=== PATIENT | female | born 1950 | race Caucasian/White ===

== ENCOUNTER 2020-12-30 18:03 | Emergency (ER) | payer MEDICARE, BC ==
[~2020-12-30] VITALS: Ht 182 cm; Wt 90.0 kg
--- OUTSIDE RECORDS SUMMARY | 2020-12-30 18:09 | XMS REPORT | Encounter Summary ---
Author Author [facility] Organization [facility] Address Unknown Phone Unavailable Care Team Providers Care Bpm Developer Name Role Phone Earl Quintanilla MD Unavailable Epifanio Avelar MD Unavailable Tejas Multani Unavailable Unavailable Epifanio Vazquez MD PCP Encounter Details Care Team Description Date Type Department Matthew Chaney MD [address] [facility] [address] [place] [address] 12/18/2020 Documentation Urology: [facility] [address] [place] [address] Social History Date Tobacco Use Types Packs/Day Years Used Never Smoker Smokeless Tobacco: Never Used Comments Alcohol Use Standard Drinks/Week No 0 (1 standard drink = 0.6 o z pure alcohol) Sex Assigned at Date Recorded Not on file Date Recorded COVID-19 Exposure Response 12/18/2020 12:58 PM CDT In the last month, have you been in contact with No / Unsure someone who was confirmed or suspected to have Coronavirus / COVID-19? documented as of this encounter Miscellaneous Notes * Research - Robert Tesfaye - 12/18/2020 3:01 PM CDT Research Informed Consent Note Study Title: Establishing the Safety and Efficacy of Reloxaliase (Oxalate Decarb oxylase) in Patients with Enteric Hyperoxaluria: A Phase III Randomized, Double- Blind, Placebo-Controlled Study (URIROX-2) [facility] [place] [id number] Consent Version Date: 02/27/2020-02/26/2021 NAME: Emily Spring :1950 AGE: 70 y.o. Clinical research participation and research nature of the trial were discussed with subject during todays visit. The subject was alert and oriented during cons ent discussion. Subject was informed that study is voluntary and she may withdr aw consent at any time for any reason by notifying study team. Study purpose, pr ocedures, tests, samples to be obtained, potential side effects, benefits, fores eeable risks and duration of study were discussed. HIPAA information, compensati on and insurance pre-certification were discussed per consent form. Alternatives to participation were discussed per consent form. Subject verbalized nerissa penn. Subject was provided time to review the consent form and discuss participation i n this study. All questions asked were answered to she satisfaction. Subject v oiced desire to participate in the study. At this time the subject needed to rev iew the income restrictions with the social security admin, and her current insu elda company to check for coverage. The subject DID NOT sign consent at this ti co. She was provided with a copy and we will reach out to her on 12/20/20 to [facility] for updates on the insurance and social security. Subject voiced understandin g and is agreeable to this plan. NO STUDY PROCEDURES TOOK PLACE AT THIS VISIT. A ll study procedures will occur after we receive the ICF. documented in this encounter Plan of Treatment Not on filedocumented as of this encounter Visit Diagnoses Not on filedocumented in this encounter
--- OUTSIDE RECORDS SUMMARY | 2020-12-30 18:09 | XMS REPORT | Encounter Summary ---
Author Author [facility] Organization [facility] Address Unknown Phone Unavailable Care Team Providers Care Slate Splitter Name Role Phone Earl Quintanilla MD Unavailable Epifanio Avelar MD Unavailable Tejas Multani Unavailable Unavailable Epifanio Vazquez MD PCP Reason for Visit * Reason Onset Date Comments Research 12/20/2020 Encounter Details Care Team Description Date Type Department Matthew Chaney MD [address] Orth[facility] [address] [place], [place] [id number] Research 12/20/2020 Telephone Urology: [facility] [address] [place] [address] Social History Date Tobacco Use [...] as of this encounter Miscellaneous Notes * Telephone Encounter - Linda Tesfayean - 12/20/2020 12:58 PM CDT Phone Call Study Title: Establishing the Safety and Efficacy of Reloxaliase (Oxalate Decarb oxylase) in Patients with Enteric Hyperoxaluria: A Phase III Randomized, Double- Blind, Placebo-Controlled Study (URIROX-2) [facility] [place]: [id number] Consent Version Date: 02/27/2020-02/26/2021 NAME: Emily Spring :1950 AGE: 70 y.o. I had the pleasure of speaking to Mrs. Spring on the phone today. Unfortunately, she spent 30 min on hold with medicare and they hung up on her. We will touch Wednesday for any updates on the coverage approval and also work on our end to p recert her for study. No study procedures took place on this call. documented in this encounter Plan of Treatment Not on filedocumented as of this encounter Visit Diagnoses Not on filedocumented in this encounter
--- OUTSIDE RECORDS SUMMARY | 2020-12-30 18:09 | XMS REPORT | Encounter Summary ---
Author Author [facility] Organization [facility] Address Unknown Phone Unavailable Care Team Providers Care [employer] Club Weigher Name Role Phone Earl Quintanilla MD Unavailable Epifanio Avelar MD Unavailable Tejas Multani Unavailable Unavailable Epifanio Vazquez MD PCP Reason for Visit * Reason Comments Kidney Stone Encounter Details Care Team Description Date Type Department Matthew Chaney MD [address] Orth[facility] [address] [place] [address] Nephrolithiasis (Primary Dx) 12/18/2020 Office Visit Urology: [facility] [address] [place] [address] Social History Date Tobacco Use [...] / COVID-19? documented as of this encounter Last Filed Vital Signs Reading Time Taken Comments Vital Sign 156/88 12/18/2020 1:04 PM CDT Blood Pressure 114 12/18/2020 1:04 PM CDT Pulse - - Temperature - - Respiratory Rate - - Oxygen Saturation - - Inhaled Oxygen Concentration 90.7 kg (200 lb) 12/18/2020 1:04 PM CDT Weight 177.8 cm (5' 10") 12/18/2020 1:04 PM CDT Height 28.7 12/18/2020 1:04 PM CDT Body Mass Index documented in this encounter Progress Notes * Mima Segundo, RN - 12/18/2020 1:00 PM CDT Patient seen my research team at today's visit. documented in this encounter Plan of Treatment Not on filedocumented as of this encounter Visit Diagnoses Diagnosis Nephrolithiasis - Primary Calculus of kidney documented in this encounter
--- OUTSIDE RECORDS SUMMARY | 2020-12-30 18:09 | XMS REPORT | Clinical Summary ---
Author Author [facility] Organization [facility] Address Unknown Phone Unavailable Care Team Providers Care Telephone Solicitor Name Role Phone Earl Quintanilla MD Unavailable Epifanio Avelar MD Unavailable Tejas Multani Unavailable Unavailable Epifanio Vazquez MD PCP Source Comments Some departments are not documenting in the electronic medical record. If you d o not see the information that you expected, contact Release of Information in [facility] [employer] Information Management department at [phone] for further assistan ce in locating additional records.[facility] Allergies Comments Active Allergy Reactions Severity Noted Date diarrhea Ampicillin UNKNOWN 10/25/2009 Codeine UNKNOWN 10/25/2009 Medications End Date Status Medication Sig Dispensed Refills Start Date Active amitriptyline (ELAVIL) 50 Take 50 mg by 0 mg tablet mouth At Bedtime Daily. Active MULTIVITAMIN Take 1 tablet 0 POIndications: SVT by mouth (supraventricular daily. tachycardia) (HCC), HTN (hypertension), Hyperlipidemia, CAD (coronary artery disease) Active atorvastatin (LIPITOR) 10 Take 10 mg by 0 mg tablet mouth daily. Active Vitamin A-Vitamin C-Vit Take 1 Cap by 0 E-Min (PRESERVISION mouth. AREDS) cap Active metFORMIN (GLUCOPHAGE) Take 1,000 mg 0 1,000 mg tablet by mouth twice daily with meals. Active VICTOZA 3-VENKATA 0.6 mg/0.1 Take 1.8 3 12/27 /201 mL (18 mg/3 mL) injection Units by 9 pen mouth daily. Active sertraline (ZOLOFT) 50 mg Take 50 mg by 0 tablet mouth daily. Active cholecalciferol (VITAMIN Take 2,000 0 D-3) 50 mcg (2,000 unit) Units by tablet mouth twice daily. Active Biotin 1 mg tab Take 1 tablet 0 by mouth daily. Active BUDESONIDE PO Take 3 0 tablets by mouth every morning. Active nitrofurantoin Take 50 mg by 0 macrocrystaL mouth at (MACRODANTIN) 50 mg bedtime capsule daily. Take with food. Active propylene glycol (SYSTANE Place into 0 BALANCE OP) or around eye(s). Active lisinopriL (ZESTRIL) 10 Take one 90 tablet 3 mg tablet tablet by 0 mouth daily. Active Problems Problem Noted Date Cardiac murmur 02/11/2020 Overview: Formatting of this note might be differ ent from the original. 02/06/2019 - ECHO: No regional wall mo tion abnormalities are seen. Overall LV systolic function appears normal. Th e estimated left ventricular ejection fraction is 60%. There is mil d concentric left ventricular hypertrophy. Right ventricular contrac tility appears normal. Normal chamber dimensions. Mild focal aortic valve sclerosis without stenosis.There is no evidence of signif icant valvular regurgitation or stenosis by doppler exam. No pericardi al effusion is seen. Chest pain 04/03/2015 PVC (premature ventricular contraction) 04/03/2015 Dyspnea 11/27/2009 Overview: Formatting of this note might be differ ent from the original. Marked dyspnea on exertion, PND, orthop malika, etc. 10/09 -- cardiac evaluation included event looping recorder monitoring which has been negative for any significant arrhythmias despite having symptoms; stress echocar diogram with normal resting echocardiogram, normal systolic function; normal diasto lic function; normal PA pressure. Adenosine thallium, which has been completely negative, CBC normal, creatinine 0.7, potassium normal, TSH normal, etc. BNP 11/20/03 normal. CPX testing through casting room helper appar ently negative. Walked on exercise treadmill for 12 min utes. Consideration of high resolution CT at Dr. Vazquez's discretion. Obesity 11/27/2009 Overview: Formatting of this note might be differ ent from the original. A. 2009 s/p gastric bypass surgery. SVT (supraventricular tachycardia) Overview: Formatting of this note might be differ ent from the original. 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 a. Recurrent palpitations although no documented arrhythmias despite multiple attempts at monitoring over the last seven years si nce 2000. Nothing other isolated ectopy. b. Isolated ectopy significantly sympt omatic in [id number]. Sectral initiated and titrated to most tolerable and lowest dose. c. Patient tired to discontinue Sectra l in the past; however, she developed significant recurrent palpitations and therefore remains on S ectral 200 mg daily as of 09/2007. Palpitations HTN (hypertension) Diabetes Hyperlipidemia Overview: Formatting of this note might be differ ent from the original. a. 08/2007 - Blood work through Dr. Erasto chinchilla's office reportedly with LDL below 100 but greater than 70. Patient reluctant to initiate therapy. Statin therapy-Simvastatin. CAD (coronary artery disease) Overview: Formatting of this note might be differ ent from the original. a. 1998 - Abnormal stress imaging perf ormed at outside office. Cardiac cath negative for obstructive disease in 1987 and 1998. b. 10/2003 - Stress echo: Limited imag ing. No clear ischemia but difficult assessment, incomplete. Adenosine thallium obtained: Lateral at tenuation artifact. Otherwise no significant perfusion abnormalities. c. 09/2007 - MPI EF 77%, lateral rever sibility, likely attenuation. d. 04/18/15 - Coronary CTA: No obstruct bell CAD. Mild to moderate calcific plaque in the distal left main but does not lead to significant luminal stenosis. Left and right atrial appendages are free of thrombus. The interatrial septum is intact. EF 71 %. Orthostatic hypotension Overview: Formatting of this note might be differ ent from the original. 07/16/00 - HUTTT (without Isuprel, as i t was unavailable at that time), negative. a. 06/[address] Vazquez's of fice of orthostatic hypotension, medications adjusted. b. Persistent symptoms of palpitations , although no documented arrhythmia, flecainide initiated empiri dinorah. c. Initiation of Sectral 06/06. At one point, patient tried to discontinue Sectral and had marked worsening of symptoms, therefore re-ini tiated with what was felt to be of benefit. d. Lab studies 08/06 unremarkable. e. ELR negative 07/06. f. Zoloft initiated 08/08 and titrated to 100 mg q d. g. Referral to Dr. Sully Rojas reg arding chronic fatigue, etc. 09/07 -- evaluation and multiple lab results pending (03/29/03). h. Marked fatigue -- as above. Also, chance smiley refer to letter 03/29/03 for greater summary of evaluation to date (06/09). Multiple lab tests obt ained including autoimmune tests, fibrinogen, etc. Question of chronic infection. Discusse d case with Dr. Rojas by phone. Also discussed case briefly with Dr. Loco Palmer. Dr. Palmer would be happy to see Ms. Spring. Both Dr. Rojas and Spencer are "out of network". They appar ently is not an infectious disease physician that is in her network in [place] that has done an y significant work with chronic fatigue. i. Marked recurrent orthostatic dizzi ness, clearly orthostatic in nature 11/09 -- Lasix decrease, medications adjusted accordingly. Last Assessment & Plan: Formatting of this note might be differ ent from the original. Ms Spring continues to have orthostatic symptoms, despite stopping the beta ashli therapy. She had what sounded like an orthostati c mediated syncopal event today. In clinic she did meet criteria for ort hostasis, but was not very symptomatic. I am going to check some basic lab work today. I am going to have her load with electr olyte rich fluids a little heavier than usual. I gave her a prescription for midodrine 2.5 mg BID, if her symptoms do not resolve with fluids, I told her to star t taking it. She is going to follow up with Dr Quintanilla in about one month. Neurologic cardiac syncope Overview: Formatting of this note might be differ ent from the original. Symptoms of recurrent lightheadedness a nd near syncope 07/16/00 - HUTTT (without Isuprel, as it was unavailable at that time), negative. 06/[address] Vazquez's office of orthostatic hypotension, medications adjusted. Persistent symptoms of palpitations, al though no documented arrhythmia, flecainide initiated empirically. Initiation of Sectral 06/06. At one poi nt, patient tried to discontinue Sectral and had marked worsening of sym ptoms, therefore re-initiated with what was felt to be of benefit. Lab studies 08/06 unremarkable. ELR neg ative 07/06. Zoloft initiated 08/08 and titrated to 100 mg q d. Referral to Dr. Sully Rojas regardi ng chronic fatigue, etc. 09/07. Marked fatigue -- as above. Also, erick munoz refer to letter 03/29/03 for greater summary of evaluation to date (06/09). Multiple lab tests obt ained including autoimmune tests, fibrinogen, etc. Question of chronic infection. Discusse d case with Dr. Rojas by phone. Also discussed case briefly with Dr. Loco Palmer. Dr. Palmer would be happy to see Ms. Spring. Both Dr. Rojas and Spencer are "out of network". They appar ently is not an infectious disease physician that is in her network in [facility] that has done any significant work with chronic fatigue. Marked recurrent orthostatic dizziness, clearly orthostatic in nature 11/09 -- Lasix decrease, medications adjusted accordingly. JAMARCUS (obstructive sleep apnea) Overview: Formatting of this note might be differ ent from the original. CPAP Fatigue DWYER (dyspnea on exertion) Encounters Care Team Description Date Type Specialty Matthew Chaney MD 12/30/2020 Documentation Urology Matthew Chaney MD Research 12/20/2020 Telephone Urology Matthew Chaney MD Nephrolithiasis (Primary Dx) 12/18/2020 Office Visit Urology Matthew Chaney MD 12/18/2020 Documentation Urology 12/18/2020 Travel from Last 3 Months Surgical History Surgery Date Site/Laterality Comments ABLATION OF DYSRHYTHMIC FOCUS ELECTROCARDIOGRAM DOPPLER ECHOCARDIOGRAPHY CARDIOVASCULAR STRESS TEST MYOCARDIAL PERFUSION IMG STUDY Medical History Medical History Date Comments SVT (supraventricular tachycardia) (HCC) Palpitations HTN (hypertension) Diabetes (HCC) Hyperlipidemia CAD (coronary artery disease) Orthostatic hypotension Neurologic cardiac syncope JAMARCUS (obstructive sleep apnea) Fatigue DWYER (dyspnea on exertion) Adverse drug reaction Obesity Family History Medical History Relation Name Comments Alzheimer's Father Aortic Disease/Dissection Father Diabetes Father Hypertension Father Cancer Mother Coronary Artery Disease Mother Aortic Disease/Dissection Sister Artificial a ortic valve Atrial Fibrillation Sister Diabetes Sister Cancer Sister Breast Cancer Relation Name Status Comments Father Mother Sister Alive Sister Alive Social History Date Tobacco Use Types Packs/Day [...] or suspected to have Coronavirus / COVID-19? Last Filed Vital Signs Reading Time Taken [...] 12/18/2020 1:04 PM CDT Body Mass Index Plan of Treatment Health Maintenance Due Date Last Done Comments MEDICARE ANNUAL WELLNESS 1950 VISIT PNEUMONIA (PPSV23) 1956 VACCINE (1 of 2 - PPSV23) DILATED EYE EXAM 1968 DTAP/TDAP VACCINES (1 - 1968 Tdap) FOOT EXAM 1968 HEPATITIS C SCREENING 1968 PHYSICAL (COMPREHENSIVE) 1968 EXAM BREAST CANCER SCREENING 1990 COLORECTAL CANCER 2000 SCREENING SHINGLES RECOMBINANT 2000 VACCINE (1 of 2) OSTEOPOROSIS 07/19/2015 SCREENING/MONITORING HBA1C 05/06/2020 11/07/2019, 11/19/2017, 07/17/2010 INFLUENZA VACCINE 10/06/2020 Results Not on filefrom Last 3 Months Insurance Type Payer Benefit Subscriber ID Effective Phone Address Plan / Dates Group Medicare MEDICARE MEDICARE [id number] 2006-P PART A AND resent B Medicare [place] [id number] 2006-P SUPPLEMENT resent [id number] [facility] (Home) [place] [id number] 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
[2020-12-30] MEDS ORDERED: KETOROLAC 30 MG/ML VIAL IVP STA (18:26)
[2020-12-30] MEDS ORDERED: NS IV 1000 ML 1,000 ML IV SCH (18:30)
[2020-12-30 18:53] LABS: BASOPHILS % (AUTO) 0 % (0-10); EOSINOPHILS # (AUTO) 0.1 10^3/uL (0.0-0.3); EOSINOPHILS % (AUTO) 2 % (0-10); HEMATOCRIT 36 % (35-52); HEMOGLOBIN 11.6 g/dL (11.5-16.0); LYMPHOCYTES # (AUTO) 1.1 10^3/uL (1.0-4.0); LYMPHOCYTES % (AUTO) 14 % (12-44); MEAN CORPUSCULAR HEMOGLOBIN 28 pg (25-34); MEAN CORPUSCULAR HGB CONC 33 g/dL (32-36); MEAN CORPUSCULAR VOLUME 86 fL (80-99); MEAN PLATELET VOLUME 10.7 fL (9.0-12.2); MONOCYTES # (AUTO) 0.6 10^3/uL (0.0-1.0); MONOCYTES % (AUTO) 8 % (0-12); NEUTROPHILS % (AUTO) 77 % (42-75); PLATELET COUNT 151 10^3/uL (130-400); WHITE BLOOD COUNT 7.9 10^3/uL (4.3-11.0)
[2020-12-30 19:11] LABS: CALCIUM 9.8 MG/DL (8.5-10.1); CREATININE SERUM 0.77 MG/DL (0.60-1.30); POTASSIUM 3.3 MMOL/L (3.6-5.0); TOTAL PROTEIN 7.4 GM/DL (6.4-8.2)
--- NOTE | 2020-12-30 19:16 | ED Back Pain ---
General Chief Complaint: General Problems/Pain Stated Complaint: BACK PAIN Nursing Triage Note: TO ROOM REPORTS THAT SHE JUST MOVED HERE WEDNESDAY FROM . HAS BEEN MOVING AND PULLING ON BOXES. REPORTS ONSET OF [facility]IN [facility] [employer] [employer] ADVISORS ON SIDE AND BACK. HAD KIDNEY STONE IN SEPTEMBER THAT THEY COULD NOT GET WITH LITHOTRIPSY HAS TO USE SOME TYPE OF OTHER PROCEDURE AND WAS TOLD SHE WOULD NEVER HAVE A KIDNEY STONE AGAIN. History of Present Illness Date Seen by Provider: Dec 30, 2020 Time Seen by Provider: 18:10 Initial Comments 70-year-old female presents for left-sided flank pain that is been present for approximately 12 to 24 hours. She recently moved here, from , and first associated the back pain with pushing and pulling on boxes. She has a history of kidney stones that required surgery during the summer 2020. She has not taken any acetaminophen because of a history of cirrhosis and prefers to not take oral NSAIDs because of GI upset. She denies any pain in her low back that radiates into her hips or legs. She doesn't have a refrigerator here and hasn't had insulin since 12/27/20. She denies any nausea or vomiting. Location: Paraspinous Muscles (left) Timing/Duration: 12-24 Hours Severity: Moderate Method of Injury: Unknown Associated Symptoms: denies symptoms; No tingling in legs/feet, No sensory/motor loss; lower back pain (left flank); No loss of bladder control, No loss of bowel control Allergies and Home Medications Allergies Coded Allergies: No Known Drug Allergies (Unverified , 12/30/20) Patient Home Medication List Home Medication List Reviewed: Yes Cephalexin (Cephalexin) 500 Mg Tablet, 500 MG PO QID Prescribed by: LUTHER MICHELLE on 12/30/202026 Tamsulosin HCl (Flomax) 0.4 Mg Cap, 0.4 MG PO DAILY Prescribed by: LUTHER MICHELLE on 12/30/202030 Review of Systems Constitutional: no symptoms reported, see HPI Genitourinary: see HPI; No dysuria, No frequency, No hematuria; other (Left flank pain) All Other Systems Reviewed Negative Unless Noted: Yes Past Vqklgdc-Ttzttj-Hxtasw Hx Patient Social History Tobacco Use?: No Substance use?: No Immunizations Up To Date First/Initial COVID19 Vaccinat: APR Second COVID19 Vaccination Ross: MAY COVID19 Vaccine Orientor: Drivable Family Medical History Reviewed Nursing Family Hx Physical Exam Vital Signs Vital Signs - First Documented 12/30/20 18:10 Temp 36.0 Pulse 102 Resp 18 B/P (MAP) 198/115 (142) Pulse Ox 100 O2 Delivery Room Air Capillary Refill : Less Than 3 Seconds Height, Weight, BMI Height: '" Weight: lbs. oz. kg; 27.00 BMI Method: General Appearance: No Apparent Distress, WD/WN HEENT: PERRL/EOMI, TMs Normal, Normal ENT Inspection, Pharynx Normal Neck: Full Range of Motion, Normal Inspection, Non Tender, Supple Cardiovascular: Regular Rate, Rhythm, No Edema, No Murmur Respiratory: Chest Non Tender, Lungs Clear, Normal Breath Sounds Gastrointestinal: Normal Bowel Sounds, Non Tender, Soft Back: Normal Inspection, CVA Tenderness (L) Extremity: Normal Capillary Refill, Normal Inspection, Normal Range of Motion, No Pedal Edema, Other (Power V/V L4-S1, Neg SLR. ) Neurologic/Psychiatric: Alert, Oriented x3, No Motor/Sensory Deficits, Normal Mood/Affect Progress/Results/Core Measures Results/Orders Lab Results Laboratory Tests Test 12/30/20 18:45 12/30/20 19:25 Range/Units White Blood Count 7.9 4.3-11.0 10^3/uL Red Blood Count 4.16 3.80-5.11 10^6/uL Hemoglobin 11.6 11.5-16.0 g/dL Hematocrit 36 35-52 % Mean Corpuscular Volume 86 80-99 fL Mean Corpuscular Hemoglobin 28 25-34 pg Mean Corpuscular Hemoglobin Concent 33 32-36 g/dL Red Cell Distribution Width 14.1 10.0-14.5 % Platelet Count 151 130-400 10^3/uL Mean Platelet Volume 10.7 9.0-12.2 fL Immature Granulocyte % (Auto) 0 % Neutrophils (%) (Auto) 77 H 42-75 % Lymphocytes (%) (Auto) 14 12-44 % Monocytes (%) (Auto) 8 0-12 % Eosinophils (%) (Auto) 2 0-10 % Basophils (%) (Auto) 0 0-10 % Neutrophils # (Auto) 6.0 1.8-7.8 10^3/uL Lymphocytes # (Auto) 1.1 1.0-4.0 10^3/uL Monocytes # (Auto) 0.6 0.0-1.0 10^3/uL Eosinophils # (Auto) 0.1 0.0-0.3 10^3/uL Basophils # (Auto) 0.0 0.0-0.1 10^3/uL Immature Granulocyte # (Auto) 0.0 0.0-0.1 10^3/uL Sodium Level 140 135-145 MMOL/L Potassium Level 3.3 L 3.6-5.0 MMOL/L Chloride Level 107 98-107 MMOL/L Carbon Dioxide Level 18 L 21-32 MMOL/L Anion Gap 15 H 5-14 MMOL/L Blood Urea Nitrogen 12 7-18 MG/DL Creatinine 0.77 0.60-1.30 MG/DL Estimat Glomerular Filtration Rate 74 BUN/Creatinine Ratio 16 Glucose Level 181 H 70-105 MG/DL Calcium Level 9.8 8.5-10.1 MG/DL Corrected Calcium 9.8 8.5-10.1 MG/DL Total Bilirubin 2.0 H 0.1-1.0 MG/DL Aspartate Amino Transf (AST/SGOT) 36 H 5-34 U/L Alanine Aminotransferase (ALT/SGPT) 25 0-55 U/L Alkaline Phosphatase 103 40-136 U/L Total Protein 7.4 6.4-8.2 GM/DL Albumin 4.0 3.2-4.5 GM/DL Urine Color YELLOW Urine Clarity TURBID Urine pH 6.0 5-9 Urine Specific [place] 1.020 1.016-1.022 Urine Protein 2+ H NEGATIVE Urine Glucose (UA) NEGATIVE NEGATIVE Urine Ketones TRACE H NEGATIVE Urine Nitrite POSITIVE H NEGATIVE Urine Bilirubin NEGATIVE NEGATIVE Urine Urobilinogen 1.0 < = 1.0 MG/DL Urine Leukocyte Esterase 2+ H NEGATIVE Urine RBC (Auto) 2+ H NEGATIVE Urine RBC NONE /HPF Urine WBC 25-50 H /HPF Urine Squamous Epithelial Cells 2-5 /HPF Urine Renal Epithelial Cells NONE /HPF Urine Crystals NONE /LPF Urine Bacteria MODERATE H /HPF Urine Casts NONE /LPF Urine Mucus NEGATIVE /LPF Urine Culture Indicated YES My Orders Orders - LUTHER MICHELLE Ua Culture If Indicated (12/30/20 18:13) Ct Abd/Pelvis Wo(Kidney Stone) (12/30/20 18:26) Ed Iv/Invasive Line Start (12/30/20 18:26) Ns Iv 1000 Ml (Sodium Chloride 0.9%) (12/30/20 18:30) Cbc With Automated Diff (12/30/20 18:26) Comprehensive Metabolic Panel (12/30/20 18:26) Ketorolac Injection (Toradol Injection) (12/30/20 18:26) Urine Culture (12/30/20 19:25) Metformin Tablet (Glucophage Tablet) (12/30/20 20:28) Rx-Cephalexin Capsule (Rx-Keflex Capsule (12/30/20 20:28) Tamsulosin Capsule (Flomax Capsule) (12/30/20 20:28) Vital Signs/I&O 12/30/20 12/30/20 18:10 20:45 Temp 36.0 Pulse 102 102 Resp 18 18 B/P (MAP) 198/115 (142) 160/94 Pulse Ox 100 99 O2 Delivery Room Air Room Air Blood Pressure Mean: 142 Progress Progress Note : Time: 18:10 Progress Note Patient seen and evaluated, will obtain labs, NS 1 L IV, Toradol 30 [address] IV for [address] CT abd/pelvis. 1899 patient has urinated twice, she forgot to use strainer the first time, no stone noted second time. She reports improvement in her pain, from either the Toradol or she has passed a stone. 1999 UA reviewed with her, frequent UTIs and states Keflex works best for her. Will start that with dose tonight and give her Metformin, since she can't find her meds. She would like to follow up with her PCP and Urologist in . Discharge instructions and return precautions reviewed. Diagnostic Imaging Diagonstic Imaging: CT Plain Films/CT/US/NM/MRI: abdomen, pelvis Comments NAME: JAQUI ROBLES [facility] REC#: [id number] PT STATUS: REG ER : 1950 PHYSICIAN: LUTHER MICHELLE ADMIT DATE: 12/30/20/ER Draft Date of Exam:12/30/20 CT ABD/PELVIS WO(KIDNEY STONE) PROCEDURE: CT urinary tract, rule out kidney stone. TECHNIQUE: Multiple contiguous axial images were obtained through the abdomen and pelvis without the use of intravenous contrast. Auto Exposure Controls were utilized during the CT exam to meet ALARA standards for radiation dose reduction. DATE: December 30, 2020. COMPARISON: None. INDICATION: 70-year-old female, flank pain. FINDINGS: There are limitations for evaluation of the abdominal organs, neoplastic processes, abscess, and limited evaluation of the vasculature relating to the lack of intravenous contrast. There are very mild linear opacities in the right middle lobe and lingula consistent with mild atelectasis and/or scarring. The heart is not enlarged. There is no pericardial effusion. The liver is nodular in contour consistent with cirrhosis. The patient is status post cholecystectomy. There is no biliary ductal dilation. The main pancreatic duct is not grossly dilated. Limited noncontrast assessment of the pancreatic parenchyma is unremarkable. The spleen is normal in size. The adrenal glands are unremarkable. There is asymmetric left perinephric stranding. There is a nonobstructing left renal stone on axial image 63 which measures 10 mm in size. There is a stone in the left distal ureter on axial image 97 measuring 4 mm in size. There is moderate left hydronephrosis. There is an additional nonobstructing left renal stone on axial image 58 measuring 2 to 3 mm in size. There is no right hydronephrosis. There is no identified right ureteral stone. The urinary bladder is unremarkable. There is procedural material at the level of the vaginal vault. The uterus is not seen and may be surgically absent. The intestinal tract is not distended. There is no evidence to suggest acute appendicitis. The patient is status post gastric bypass procedure. There is no free intraperitoneal air. There is no drainable fluid collection. There is no sizable volume free pelvic fluid. There are atherosclerotic calcifications. There is no identified abnormally enlarged lymph node in the abdomen or pelvis meeting CT size criteria for adenopathy. There are multilevel degenerative changes of the spine. There is no identified acute bony abnormality. IMPRESSION: CT ABDOMEN AND PELVIS. 1. 4 mm stone in the left distal ureter with moderate left hydronephrosis. 2. Additional nonobstructing left renal stones. 3. Cirrhosis. Dictated on workstation # [id number] Dict: 12/30/201909 Trans: 12/30/201919 [facility] [id number] Interpreted by: CARLITO RODRIGUES MD Electronically signed by: Reviewed: Reviewed by Me Departure Impression Primary Impression: Urolithiasis Qualified Codes: N20.1 - Calculus of ureter Additional Impressions: UTI (urinary tract infection) Qualified Codes: N30.01 - Acute cystitis with hematuria Hyperglycemia Diabetes type 2, controlled Qualified Codes: E11.9 - Type 2 diabetes mellitus without complications Disposition: HOME, SELF-CARE Condition: Improved Departure-Patient Inst. Decision time for Depature: 20:00 Referrals: NO,LOCAL PHYSICIAN (PCP/Family) Primary Care Physician Patient Instructions: Urinary Tract Infection, Adult (DC), Kidney Stones (DC) Add. Discharge Instructions: Increase water intake. Take antibiotics as prescribed. Find your medications and begin your home medications as soon as possible Follow-up with your early childhood special educator as scheduled tomorrow, try to schedule an appointment with urologist for the same time. Return to the emergency department for new, urgent healthcare problems. All discharge instructions reviewed with patient and/or family. Voiced understanding. Scripts Tamsulosin HCl (Flomax) 0.4 Mg Cap 0.4 MG PO DAILY for 14 Days, #14 CAP 0 Refills Prov: LUTHER MICHELLEP 12/30/20 Cephalexin (Cephalexin) 500 Mg Tablet 500 MG PO QID, #28 TAB 0 Refills Prov: LUTHER MICHELLE GUIDE RAIL CLEANER 12/30/20 LTUHER MICHELLE Dec 30, 2020 19:16
--- NOTE | 2020-12-30 19:21 | Diagnostic Imaging Report ---
PROCEDURE: CT urinary tract, rule out kidney stone. TECHNIQUE: Multiple contiguous axial images were obtained through the abdomen and pelvis without the use of intravenous contrast. Auto Exposure Controls were utilized during the CT exam to meet ALARA standards for radiation dose reduction. DATE: December 30, 2020. COMPARISON: None. INDICATION: 70-year-old female, flank pain. FINDINGS: There are limitations for evaluation of the abdominal organs, neoplastic processes, abscess, and limited evaluation of the vasculature relating to the lack of intravenous contrast. There are very mild linear opacities in the right middle lobe and lingula consistent with mild atelectasis and/or scarring. The heart is not enlarged. There is no pericardial effusion. The liver is nodular in contour consistent with cirrhosis. The patient is status post cholecystectomy. There is no biliary ductal dilation. The main pancreatic duct is not grossly dilated. Limited noncontrast assessment of the pancreatic parenchyma is unremarkable. The spleen is normal in size. The adrenal glands are unremarkable. There is asymmetric left perinephric stranding. There is a nonobstructing left renal stone on axial image 63 which measures 10 mm in size. There is a stone in the left distal ureter on axial image 97 measuring 4 mm in size. There is moderate left hydronephrosis. There is an additional nonobstructing left renal stone on axial image 58 measuring 2 to 3 mm in size. There is no right hydronephrosis. There is no identified right ureteral stone. The urinary bladder is unremarkable. There is procedural material at the level of the vaginal vault. The uterus is not seen and may be surgically absent. The intestinal tract is not distended. There is no evidence to suggest acute appendicitis. The patient is status post gastric bypass procedure. There is no free intraperitoneal air. There is no drainable fluid collection. There is no sizable volume free pelvic fluid. There are atherosclerotic calcifications. There is no identified abnormally enlarged lymph node in the abdomen or pelvis meeting CT size criteria for adenopathy. There are multilevel degenerative changes of the spine. There is no identified acute bony abnormality. IMPRESSION: CT ABDOMEN AND PELVIS. 1. 4 mm stone in the left distal ureter with moderate left hydronephrosis. 2. Additional nonobstructing left renal stones. 3. Cirrhosis. Dictated by: Dictated on workstation # [id number]
[2020-12-30 19:58] LABS: BILIRUBIN,URINE NEGATIVE (NEGATIVE); CLARITY,URINE TURBID; COLOR,URINE YELLOW; GLUCOSE, URINE (UA) NEGATIVE (NEGATIVE); KETONES,URINE TRACE (NEGATIVE); LEUKOCYTE ESTERASE ,URINE 2+ (NEGATIVE); NITRITE,URINE POSITIVE (NEGATIVE); PROTEIN,URINE 2+ (NEGATIVE)
[2020-12-30 20:13] LABS: BACTERIA,URINE MODERATE /HPF; WBC,URINE 25-50 /HPF
[2020-12-30] MEDS ORDERED: CEPH500T PO (20:27)
[2020-12-30] MEDS ORDERED: RX-CEPHALEXIN (KEFLEX) 250 MG CAP PPK#4 PO STA (20:28)
[2020-12-30] MEDS ORDERED: TAMSULOSIN 0.4 MG (FLOMAX) CAP PO STA (20:28)
[2020-12-30] MEDS ORDERED: metFORMIN 500 MG (GLUCOPHAGE) TAB PO STA (20:28)
[2020-12-30] MEDS ORDERED: TMSL.4C PO (20:31)
[2020-12-30 20:45] VITALS: BP 160/94
== END 2020-12-30 20:44 | disposition home or self-care (01) ==
LOC: ER 18:06
DX: N13.2 Hydronephrosis with renal and ureteral calculous obstruction (principal); N39.0 Urinary tract infection, site not specified; E11.65 Type 2 diabetes mellitus with hyperglycemia
CPT/HCPCS: 36415; 74176; 80053; 81000; 85025; 87077; 87088; 87186

== ENCOUNTER 2021-02-16 16:44 | Emergency (ER) | payer MEDICARE, BC ==
[~2021-02-16] VITALS: Ht 177.8 cm; Wt 88.5 kg
[~2021-02-16 16:44] MED LIST: CEPH500T PO; TMSL.4C PO
--- OUTSIDE RECORDS SUMMARY | 2021-02-16 16:49 | XMS REPORT | Encounter Summary ---
Author Author [facility] Organization [facility] Address Unknown Phone Unavailable Care Team Providers Care Flight Controls Engineer Name Role Phone Earl Quintanilla MD Unavailable Epifanio Avelar MD Unavailable Tejas Multani Unavailable Unavailable Epifanio Vazquez MD PCP Encounter Details Care Team Description Date Type Department Matthew Chaney MD [address] Orth[facility] [address] [place] [address] 01/02/2021 Documentation Urology: [facility], [facility] [address], [place] [address] Social History Date Tobacco Use [...] Notes * Research - Robert Tesfaye - 01/02/2021 10:31 AM CDT Phone Call Study Title: Establishing the Safety and Efficacy of Reloxaliase (Oxalate Decarb oxylase) in Patients with Enteric Hyperoxaluria: A Phase III Randomized, Double- Blind, Placebo-Controlled Study (URIROX-2) [facility]: [id number] Consent Version Date: 02/27/2020-02/26/2021 Name: Emily Spring : 1950 AGE: 70 y.o. Today I had the please of speaking to Emily Spring on their mobile phone number . Emily called the clinic number on 12/30 and notified us that unfortunately she has an ongoing stone episode w/ a concurrent UTI and possible kidney infection. She was placed on Rocephin and cephalexin for the infections by her PCP. The st one was discovered on a CT scan done at an ER outside of [facility] on 12/30/20. The C T indicated a 4mm stone in her L. Ureter (unknown if proximal or distal). She wa s prescribed Toradol PRN and ondansetron PRN at the ER as well. They have not in dicated that they want to operate on the stone and is under observation at this time. I notified her that we will have to wait till these issues resolve before we can begin the screening process. I also made sure to clarify that she needs t o notify us ARELI if anything changes. She agreed to this plan. I will call her a gain next week to check for the resolution of her symptoms and for any updates. documented in this encounter Plan of Treatment Not on filedocumented as of this encounter Visit Diagnoses Not on filedocumented in this encounter Care Teams Start Date End Date Flight Controls Engineer Relationship Specialty 01/10/13 Epifanio Vazquez MD PCP - General Family [address] [facility] [address] [place] [address] 01/06/10 Earl Quintanilla MD [address] [facility] [id number] [place] [address] 01/06/10 Epifanio Avelar MD [address] [facility] [id number] [place] [address] 01/06/10 Tejas Multani documented as of this encounter
--- OUTSIDE RECORDS SUMMARY | 2021-02-16 16:49 | XMS REPORT | Clinical Summary ---
Author Author [facility] Organization [facility] Address Unknown Phone Unavailable Care Team Providers Care Ict Managers Name Role Phone Earl Quintanilla MD Unavailable Epifanio Avelar MD Unavailable Tejas Multani Unavailable Unavailable Epifanio Vazquez MD PCP Source Comments Some departments are not documenting in the electronic medical record. If you d o not see the information that you expected, contact Release of Information in [facility] [employer] Information Management department at [phone] for further assistan ce in locating additional records.[facility] Allergies Comments Active Allergy Reactions Severity Noted [...] etc. BNP 11/20/03 normal. CPX testing through ophthalmic surgical assistant appar ently negative. Walked on exercise treadmill [...] RFA curing her SVT in 05/2000 at [facility]. a. Recurrent palpitations although no documented arrhythmias despite multiple attempts at monitoring over the last seven years si nce 2000. Nothing other isolated ectopy. b. Isolated ectopy significantly sympt omatic in [id number]. Sectral initiated and titrated to most tolerable [...] physician that is in her network in [place] that has done an y significant work [...] physician that is in her network in [facility] that has done any significant work with chronic fatigue. Marked recurrent orthostatic dizziness, clearly orthostatic in nature 11/09 -- Lasix decrease, medications adjusted accordingly. JAMARCUS (obstructive sleep apnea) Overview: Formatting of this note might be differ ent from the original. CPAP Fatigue DWYER (dyspnea on exertion) Encounters Care Team Description Date Type Specialty Matthew Chaney MD 01/02/2021 Documentation Urology Matthew Chaney MD 12/30/2020 Documentation Urology Matthew [...] Assigned at Date Recorded Not on file Last Filed Vital Signs Reading Time Taken [...] Plan / Dates Group Medicare MEDICARE MEDICARE [id number] 2006-P [phone] [address] [place] [address] Medicare BCBS ROMAN BCBS [id number] 2006-P [phone] [address] [place] [address] [address] [facility] (Home) AMPARO Sánchez [phone] Advance Directives Patient Manager University Explanation Type Date Recorded Advance 01/09/2013 12:09 PM Directive/DPOA Advance Directives 06/15/2011 12:00 AM and Living Will Advance Directives 02/25/2011 12:00 AM and Living Will Advance Directives 08/06/2010 12:00 AM and Living Will Advance Directives 07/31/2010 12:00 AM and Living Will Advance Directives 03/04/2010 12:00 AM and Living Will Care Teams Start Date End Date Ict Managers Relationship Specialty 01/10/13 Epifanio Vazquez MD PCP - General Family [address] [place] [address] [address] [place] [address] 01/06/10 Earl Quintanilla MD [address] [facility] [id number] [place] [address] 01/06/10 Epifanio Avelar MD [address] [facility] [id number] [place] [address] 01/06/10 Tejas Multani
--- OUTSIDE RECORDS SUMMARY | 2021-02-16 16:49 | XMS REPORT | Encounter Summary ---
Author Author [facility] Organization [facility] Address Unknown Phone Unavailable Care Team Providers Care Turkey Pinner Name Role Phone Earl Quintanilla MD Unavailable Epifanio Avelar MD Unavailable Tejas Multani Unavailable Unavailable Epifanio Vazquez MD PCP Encounter Details Care Team Description Date Type Department Matthew Chaney MD [address] Ortho[facility] [address] [place] [address] 12/30/2020 Documentation Urology: [facility], [facility] [address] [place] [address] Social History Date Tobacco Use [...] / COVID-19? documented as of this encounter Progress Notes * Kerry Jimenes LPN - 12/30/2020 2:36 PM CDT Pt calling to let Robert know she passed a stone and had a recent CT in [place] [facility]. I told her I would let Robert know. She agrees with this plan. documented in this encounter Miscellaneous Notes * Research - Robert Tesfaye - 12/30/2020 2:36 PM CDT Phone Call Study Title: Establishing the Safety and Efficacy of Reloxaliase (Oxalate Decarb oxylase) in Patients with Enteric Hyperoxaluria: A Phase III Randomized, Double- Blind, Placebo-Controlled Study (URIROX-2) [facility]: [id number] Consent Version Date: 02/27/2020-02/26/2021 NAME: Emily Spring :1950 AGE: 70 y.o. I had the pleasure of speaking to Mrs. Spring on the phone today. She informed me that she will not have any financial limits to participate because of her social security. The patient did however move to a new home and is out of town for a little while. She will return in a few weeks. At that time she will come in and sign consent to participate on study. After she signs consent we will begin the screening procedures. The patient did not have any questions or concerns regardi ng the study. documented in this encounter Plan of Treatment Not on filedocumented as of this encounter Visit Diagnoses Not on filedocumented in this encounter Care Teams Start Date End Date Turkey Pinner Relationship Specialty 01/10/13 Epifanio Vazquez MD PCP - General Family [address] [facility] [address] [place] [address] 01/06/10 Earl Quintanilla MD [address] [facility] [id number] [place] [address] 01/06/10 Epifanio Avelar MD [address] [facility] [id number] [place] [address] 01/06/10 Tejas Multani documented as of this encounter
--- NOTE | 2021-02-16 16:57 | ED General ---
General Stated Complaint: FEVER/CHILLS Source of Information: Patient Exam Limitations: No Limitations History of Present Illness Date Seen by Provider: Feb 16, 2021 Time Seen by Provider: 16:55 Initial Comments To ER with fever chills up to 102 degrees since 02/14/2021. She has lower abdominal pain urinary frequency and urinary burning. She also has some left flank pain. She was here for a left ureteral stone in December of this year. She believes that she passed the stone but is not sure. No nausea. No cough no shortness of breath. She has had 2 Covid vaccines. Primary care is Dr. Epifanio Vazquez out of [facility]. She just moved to [place] a few months ago. Timing/Duration: 1-2 Days Severity: Moderate Associated Systoms: Fever/Chills Allergies and Home Medications Allergies Coded Allergies: No Known Drug Allergies (Unverified , 12/30/20) Patient Home Medication List Home Medication List Reviewed: Yes Cephalexin (Cephalexin) 500 Mg Tablet, 500 MG PO QID Prescribed by: LUTHER MICHELLE on 12/30/202026 Tamsulosin HCl (Flomax) 0.4 Mg Cap, 0.4 MG PO DAILY Prescribed by: LUTHER MICHELLE on 12/30/202030 Review of Systems Review of Systems Constitutional: see HPI, chills, fever EENTM: see HPI Respiratory: no symptoms reported Cardiovascular: no symptoms reported Genitourinary: see HPI, dysuria Musculoskeletal: no symptoms reported Skin: no symptoms reported Psychiatric/Neurological: No Symptoms Reported Hematologic/Lymphatic: No Symptoms Reported Immunological/Allergic: no symptoms reported Past Mgisldq-Rdohmq-Xcwijj Hx Immunizations Up To Date First/Initial COVID19 Vaccinat: APR Second COVID19 Vaccination Ross: MAY Physical Exam Vital Signs Vital Signs - First Documented 02/16/21 16:50 Temp 36.6 Pulse 113 Resp 22 B/P (MAP) 182/107 (132) Pulse Ox 99 O2 Delivery Room Air Capillary Refill : Height, Weight, BMI Height: '" Weight: lbs. oz. kg; 27.00 BMI Method: General Appearance: No Apparent Distress, WD/WN Eyes: Bilateral Eye Normal Inspection, Bilateral Eye PERRL, Bilateral Eye EOMI Neck: Full Range of Motion, Normal Inspection Respiratory: No Accessory Muscle Use, No Respiratory Distress Cardiovascular: Normal Peripheral Pulses, Tachycardia Gastrointestinal: Normal Bowel Sounds, Non Tender, Soft Extremity: Normal Capillary Refill, Normal Inspection Neurologic/Psychiatric: Alert, Oriented x3 Skin: Normal Color, Warm/Dry Focused Exam Lactate Level 02/16/21 17:15: Lactic Acid Level 1.00 Lactic Acid Level Laboratory Tests Test 02/16/21 17:15 Lactic Acid Level 1.00 MMOL/L (0.50-2.00) Progress/Results/Core Measures Suspected Sepsis SIRS Temperature: Pulse: Respiratory Rate: Laboratory Tests 02/16/21 16:54: White Blood Count 8.7 Blood Pressure / Mean: 02/16/21 17:15: Lactic Acid Level 1.00 Laboratory Tests 02/16/21 16:54: Creatinine 0.73, INR Comment 1.3, Platelet Count 124L, Total Bilirubin 2.7H Results/Orders Lab Results Laboratory Tests Test 02/16/21 16:54 02/16/21 17:15 02/16/21 17:52 Range/Units White Blood Count 8.7 4.3-11.0 10^3/uL Red Blood Count 4.60 3.80-5.11 10^6/uL Hemoglobin 12.8 11.5-16.0 g/dL Hematocrit 39 35-52 % Mean Corpuscular Volume 85 80-99 fL Mean Corpuscular Hemoglobin 28 25-34 pg Mean Corpuscular Hemoglobin Concent 33 32-36 g/dL Red Cell Distribution Width 14.5 10.0-14.5 % Platelet Count 124 L 130-400 10^3/uL Mean Platelet Volume 12.0 9.0-12.2 fL Immature Granulocyte % (Auto) 0 % Neutrophils (%) (Auto) 78 H 42-75 % Lymphocytes (%) (Auto) 11 L 12-44 % Monocytes (%) (Auto) 9 0-12 % Eosinophils (%) (Auto) 1 0-10 % Basophils (%) (Auto) 0 0-10 % Neutrophils # (Auto) 6.7 1.8-7.8 10^3/uL Lymphocytes # (Auto) 1.0 1.0-4.0 10^3/uL Monocytes # (Auto) 0.8 0.0-1.0 10^3/uL Eosinophils # (Auto) 0.1 0.0-0.3 10^3/uL Basophils # (Auto) 0.0 0.0-0.1 10^3/uL Immature Granulocyte # (Auto) 0.0 0.0-0.1 10^3/uL Percent Immature Platelet Fraction 5.2 0.0-7.6 % Prothrombin Time 16.2 H 12.2-14.7 SEC INR Comment 1.3 0.8-1.4 Activated Partial Thromboplast Time 33 24-35 SEC Sodium Level 133 L 135-145 MMOL/L Potassium Level 3.9 3.6-5.0 MMOL/L Chloride Level 101 98-107 MMOL/L Carbon Dioxide Level 20 L 21-32 MMOL/L Anion Gap 12 5-14 MMOL/L Blood Urea Nitrogen 11 7-18 MG/DL Creatinine 0.73 0.60-1.30 MG/DL Estimat Glomerular Filtration Rate 79 BUN/Creatinine Ratio 15 Glucose Level 141 H 70-105 MG/DL Calcium Level 9.6 8.5-10.1 MG/DL Corrected Calcium 9.7 8.5-10.1 MG/DL Total Bilirubin 2.7 H 0.1-1.0 MG/DL Aspartate Amino Transf (AST/SGOT) 31 5-34 U/L Alanine Aminotransferase (ALT/SGPT) 24 0-55 U/L Alkaline Phosphatase 131 40-136 U/L Total Protein 7.6 6.4-8.2 GM/DL Albumin 3.9 3.2-4.5 GM/DL Influenza Type A (RT-PCR) Not Detected Not Detecte Influenza Type B (RT-PCR) Not Detected Not Detecte SARS-CoV-2 RNA (RT-PCR) Not Detected Not Detecte Lactic Acid Level 1.00 0.50-2.00 MMOL/L Urine Color ORANGE Urine Clarity CLEAR Urine pH 6.0 5-9 Urine Specific [place] 1.015 L 1.016-1.022 Urine Protein NEGATIVE NEGATIVE Urine Glucose (UA) NEGATIVE NEGATIVE Urine Ketones 1+ H NEGATIVE Urine Nitrite POSITIVE H NEGATIVE Urine Bilirubin NEGATIVE NEGATIVE Urine Urobilinogen 0.2 < = 1.0 MG/DL Urine Leukocyte Esterase 2+ H NEGATIVE Urine RBC (Auto) 1+ H NEGATIVE Urine RBC 2-5 H /HPF Urine WBC 10-25 H /HPF Urine Squamous Epithelial Cells 2-5 /HPF Urine Crystals NONE /LPF Urine Bacteria MODERATE H /HPF Urine Casts NONE /LPF Urine Mucus NEGATIVE /LPF Urine Culture Indicated CULTURE PENDING My Orders Orders - VANGIE OVERTON APRN Cbc With Automated Diff (02/16/21 16:50) Comprehensive Metabolic Panel (02/16/21 16:50) Blood Culture (02/16/21 16:50) Sputum Culture (02/16/21 16:50) Urinalysis (02/16/21 16:50) Urine Culture (02/16/21 16:50) Protime With Inr (02/16/21 16:50) Partial Thromboplastin Time (02/16/21 16:50) Chest 1 View, Ap/Pa Only (02/16/21 16:50) Ed Iv/Invasive Line Start (02/16/21 16:50) Ed Iv/Invasive Line Start (02/16/21 16:50) Vital Signs Adult Sepsis Patie Q15M (02/16/21 16:50) O2 (02/16/21 16:50) Remove Rings In Anticipation O (02/16/21 16:50) Lactic Acid Analyzer (02/16/21 16:50) Covid 19 Inhouse Test (02/16/21 16:50) Influenza A And B By Pcr (02/16/21 16:50) Lactated Ringers (Lr 1000 Ml Iv Solution (02/16/21 17:00) Ct Abd/Pelvis Wo(Kidney Stone) (02/16/21 16:54) Vital Signs/I&O 02/16/21 16:50 Temp 36.6 Pulse 113 Resp 22 B/P (MAP) 182/107 (132) Pulse Ox 99 O2 Delivery Room Air Capillary Refill : Departure Communication (Admissions) NAME: JAQUI ROBLES [facility] REC#: [id number] PT STATUS: REG ER : 1950 PHYSICIAN: VANGIE OVERTON APRN ADMIT DATE: 02/16/21/ER Draft Date of Exam:02/16/21 CT ABD/PELVIS WO(KIDNEY STONE) CT abd/pelvis w/o (kidney stone). TECHNIQUE: Unenhanced CT imaging of the abdomen and pelvis was performed. 2D reformats were created and submitted for interpretation. Automatic exposure controls were utilized to optimize patient dose. INDICATION: Lower abdominal pain. COMPARISON: 12/30/2020. FINDINGS: Evaluation of the abdominal viscera is mildly limited without contrast. Lower chest: The lung bases are clear. No pericardial or pleural effusion. Peritoneum: No free intraperitoneal air or fluid. Liver and biliary system: Nodular liver is indicative of cirrhosis. No focal hepatic lesion is appreciated by noncontrast CT. Cholecystectomy. No biliary duct dilatation. Spleen and pancreas: Stable splenomegaly with the spleen measuring 15 cm. Unenhanced pancreas is grossly normal. Adrenals: Normal. tract: Mild left hydronephrosis is present with perinephric stranding. There is no stone present within the left ureter. There are adjacent nonobstructing stones in the lower pole of the left kidney measuring up to 4 mm. No right-sided renal or ureteral stones. Urinary bladder is normally filled without wall thickening. A pessary device is in place. GI tract: Status post Dariel-en-Y gastric bypass. Included stomach is decompressed. No bowel obstruction. No pericolonic inflammatory changes. Normal appendix. Vasculature and Lymph nodes: Normal caliber aorta. No abdominal or pelvic lymphadenopathy. Musculoskeletal: No concerning osseous lesion. IMPRESSION: 1. Mild left hydronephrosis with perinephric stranding has diminished since 12/30/2020 examination. The appearance may be due to sequelae of prior obstruction or recently passed stone, as there is no stone in the left ureter at this time. 2. Cirrhosis with splenomegaly. 3. No ascites. Dictated on workstation # [id number] Dict: 02/16/21 1745 Trans: 02/16/21 1757 [facility] [id number] Interpreted by: ROHAN NOEL MD Electronically signed by: Impression Primary Impression: UTI (urinary tract infection) Disposition: 01 HOME, SELF-CARE Condition: Stable Departure-Patient Inst. Decision time for Depature: 18:10 Referrals: NO,LOCAL PHYSICIAN (PCP/Family) Primary Care Physician Patient Instructions: Urinary Tract Infection, Adult (DC) Scripts Cefuroxime Axetil (Cefuroxime) 500 Mg Tablet 500 MG PO BID, #10 TAB Prov: VANGIE OVERTON APRN 02/16/21 VANGIE OVERTON APRN Feb 16, 2021 16:56
[2021-02-16] MEDS ORDERED: LACTATED RINGERS 1,000 ML IV SCH (17:00)
[2021-02-16 17:09] LABS: BASOPHILS % (AUTO) 0 % (0-10); HEMOGLOBIN 12.8 g/dL (11.5-16.0); MEAN CORPUSCULAR HEMOGLOBIN 28 pg (25-34)
[2021-02-16 17:11] LABS: EOSINOPHILS # (AUTO) 0.1 10^3/uL (0.0-0.3); EOSINOPHILS % (AUTO) 1 % (0-10); HEMATOCRIT 39 % (35-52); LYMPHOCYTES % (AUTO) 11 % (12-44); MEAN CORPUSCULAR HGB CONC 33 g/dL (32-36); MEAN CORPUSCULAR VOLUME 85 fL (80-99); MONOCYTES # (AUTO) 0.8 10^3/uL (0.0-1.0); MONOCYTES % (AUTO) 9 % (0-12); NEUTROPHILS # (AUTO) 6.7 10^3/uL (1.8-7.8); NEUTROPHILS % (AUTO) 78 % (42-75); PLATELET COUNT 124 10^3/uL (130-400); WHITE BLOOD COUNT 8.7 10^3/uL (4.3-11.0)
[2021-02-16 17:18] LABS: ALBUMIN 3.9 GM/DL (3.2-4.5); POTASSIUM 3.9 MMOL/L (3.6-5.0)
[2021-02-16 17:19] LABS: CALCIUM 9.6 MG/DL (8.5-10.1)
[2021-02-16 17:20] LABS: TOTAL PROTEIN 7.6 GM/DL (6.4-8.2)
[2021-02-16 17:22] LABS: BILIRUBIN,TOTAL 2.7 MG/DL (0.1-1.0)
[2021-02-16 17:24] LABS: CREATININE SERUM 0.73 MG/DL (0.60-1.30)
[2021-02-16 17:49] LABS: INR 1.3 (0.8-1.4); PROTHROMBIN TIME PATIENT 16.2 SEC (12.2-14.7)
--- NOTE | 2021-02-16 17:53 | Diagnostic Imaging Report ---
CHEST 1 VIEW, AP/PA ONLY Indication: Fever Comparison: None available. Findings: No focal airspace disease in the visualized lungs. Please note that the posterior lower lobes are poorly evaluated by portable radiography. No pleural effusion or pneumothorax. Normal cardiomediastinal silhouette. Impression: 1. No acute cardiopulmonary process by portable radiography. Dictated by: Dictated on workstation # [id number]
[2021-02-16 17:59] LABS: BILIRUBIN,URINE NEGATIVE (NEGATIVE); CLARITY,URINE CLEAR; COLOR,URINE ORANGE; GLUCOSE, URINE (UA) NEGATIVE (NEGATIVE); KETONES,URINE 1+ (NEGATIVE); LEUKOCYTE ESTERASE ,URINE 2+ (NEGATIVE); NITRITE,URINE POSITIVE (NEGATIVE); PROTEIN,URINE NEGATIVE (NEGATIVE)
--- NOTE | 2021-02-16 17:59 | Diagnostic Imaging Report ---
CT abd/pelvis w/o (kidney stone). TECHNIQUE: Unenhanced CT imaging of the abdomen and pelvis was performed. 2D reformats were created and submitted for interpretation. Automatic exposure controls were utilized to optimize patient dose. INDICATION: Lower abdominal pain. COMPARISON: 12/30/2020. FINDINGS: Evaluation of the abdominal viscera is mildly limited without contrast. Lower chest: The lung bases are clear. No pericardial or pleural effusion. Peritoneum: No free intraperitoneal air or fluid. Liver and biliary system: Nodular liver is indicative of cirrhosis. No focal hepatic lesion is appreciated by noncontrast CT. Cholecystectomy. No biliary duct dilatation. Spleen and pancreas: Stable splenomegaly with the spleen measuring 15 cm. Unenhanced pancreas is grossly normal. Adrenals: Normal. tract: Mild left hydronephrosis is present with perinephric stranding. There is no stone present within the left ureter. There are adjacent nonobstructing stones in the lower pole of the left kidney measuring up to 4 mm. No right-sided renal or ureteral stones. Urinary bladder is normally filled without wall thickening. A pessary device is in place. GI tract: Status post Dariel-en-Y gastric bypass. Included stomach is decompressed. No bowel obstruction. No pericolonic inflammatory changes. Normal appendix. Vasculature and Lymph nodes: Normal caliber aorta. No abdominal or pelvic lymphadenopathy. Musculoskeletal: No concerning osseous lesion. IMPRESSION: 1. Mild left hydronephrosis with perinephric stranding has diminished since 12/30/2020 examination. The appearance may be due to sequelae of prior obstruction or recently passed stone, as there is no stone in the left ureter at this time. 2. Cirrhosis with splenomegaly. 3. No ascites. Dictated by: Dictated on workstation # [id number]
[2021-02-16 18:05] LABS: BACTERIA,URINE MODERATE /HPF
[2021-02-16] MEDS ORDERED: CEFU500T63 PO (18:11)
[2021-02-16] MEDS ORDERED: cefTRIAXone 1 GM PRE-MIX 50 ML IV ONE (18:15)
[2021-02-16 18:44] VITALS: BP 140/89
== END 2021-02-16 18:43 | disposition home or self-care (01) ==
LOC: EDUNIT# 16:44 → ER 16:46
DX: N39.0 Urinary tract infection, site not specified (principal); R00.0 Tachycardia, unspecified; Z20.822 Contact with and (suspected) exposure to COVID-19
CPT/HCPCS: 36415; 71045; 74176; 80053; 81000; 83605; 85025; 85610; 85730; 87040; 87077; 87088; 87186; 87636; 96361; 96374

== ENCOUNTER → 2021-02-22 | Outpatient (CLI) | payer MEDICARE, BC ==
[~2021-02-22] MED LIST changes: +CEFU500T63 PO
--- NOTE | 2021-02-22 17:26 | Diagnostic Imaging Report ---
EXAM: US VENOUS UPPER EXT LT INDICATION: Pain and bruising in left upper extremity. COMPARISON: None. TECHNIQUE: Duplex, conklin-scale and color-flow imaging of the left upper extremity venous system was performed. FINDINGS: The left jugular, subclavian, axillary and brachial veins show no evidence of intraluminal thrombosis. The basilic and cephalic veins are patent. These vessels show normal compressibility, color flow and Doppler augmentation. IMPRESSION: No evidence of deep venous thrombosis in the left upper extremity. Dictated by: Dictated on workstation # [id number]
== END ==
LOC: RAD 16:33
PROVIDERS: ATTEND Nurse Practitioner Family
DX: S40.022A Contusion of left upper arm, initial encounter (principal); X58.XXXA Exposure to other specified factors, initial encounter

== ENCOUNTER 2021-07-30 16:08 | Outpatient (CLI) | payer MEDICARE, BC ==
[~2021-07-30] VITALS: Ht 177.8 cm; Wt 88.0 kg
[2021-07-30] MEDS ORDERED: NORT50CA PO (16:49)
[2021-07-30] MEDS ORDERED: ATOR10TA66 PO (16:49)
[2021-07-30] MEDS ORDERED: AMOX125S47 PO (16:49)
[2021-07-30] MEDS ORDERED: SERT-413 PO (16:49)
[2021-07-30] MEDS ORDERED: METF-399 PO (16:49)
== END 2021-07-30 17:04 | disposition home or self-care (01) ==
LOC: PREOP 16:08
PROVIDERS: ATTEND Internal Medicine
DX: Z01.818 Encounter for other preprocedural examination (principal)

== ENCOUNTER 2021-08-01 10:40 | Day surgery (SDC) | payer BC, MEDICARE ==
--- NOTE | 2021-07-31 08:17 | HISTORY AND PHYSICAL ---
DATE OF SERVICE: PANENDOSCOPY HISTORY AND PHYSICAL HISTORY OF PRESENT ILLNESS: The patient is a 71-year-old white female referred by Dr. Epifanio Vazquez of [place], [place] for consideration for panendoscopy. She reports 6 to 8 loose stools per day for the past 3 to 4 months with a 10 to 20-pound weight loss. With this, she has had intermittent epigastric discomfort. PAST MEDICAL HISTORY: Pertinent for diagnosis of lymphocytic colitis after colonoscopy for diarrhea 3 years ago. She was given budesonide at that time with resolution of symptoms, which are similar today's symptoms. She has a past history of Dariel-en-Y gastric bypass for weight loss in 2009 and reports occult positive blood in the stool. She is not sure as to whether or not it is associated with anemia. She did not think so. She denies dysphagia. Has noted no melena or bright red blood per rectum. PAST MEDICAL HISTORY: Significant for cholecystectomy in 2006. She reports that she had no issues with diarrhea following a cholecystectomy in fact previously attended more towards constipation. She does report multiple colonoscopies in the past and for the last one, she has usually had several precancerous polyps removed with no known history of colon cancer. Last colonoscopy was 3 years ago. SOCIAL HISTORY: She is retired. Reports no past smoking or drinking history. PAST MEDICAL HISTORY: Other than above is noted for depression, type 2 diabetes and hyperlipidemia. She has no known history of coronary artery disease. MEDICATIONS ON ADMISSION: Metformin 1000 mg b.i.d., sertraline 50 mg at bedtime, nortriptyline 50 mg at bedtime, atorvastatin 10 mg daily, B12 injections monthly. 2000 units of vitamin D daily and biotin 1000 units at bedtime. REVIEW OF SYSTEMS: CONSTITUTIONAL: Reports 10-20 pound weight loss. Denies night sweats, chills or fever. PULMONARY: Denies cough, wheezing or shortness of breath. GASTROINTESTINAL: As noted in the HPI. CARDIOVASCULAR: Denies orthopnea or PND. Does report some pedal edema by the end of the day. PHYSICAL EXAMINATION: GENERAL: Reveals a white female, a little anxious, but not in acute distress. VITAL SIGNS: Weight 194 pounds, blood pressure 144/84. HEENT: Unremarkable. Sclerae nonicteric. CHEST: Clear to auscultation. CARDIOVASCULAR: Reveals a regular rate and rhythm with a 2/6 systolic ejection murmur heard best at left lower sternal border and second right intercostal space without evidence of Pulsus parvus et tardus. No S3 or S4 noted. ABDOMEN: Soft, supple. Epigastric pain to palpation is noted. No mass or organomegaly is noted. Bowel sounds are positive. No bruits are appreciated. EXTREMITIES: Reveal no cyanosis, clubbing or edema on the morning appointment. The patient's electronic medical record was reviewed. She did have an emergency room visit from 12/26 for right obstructing nephrolithiasis complicated by urinary tract infection. CT also revealed a nodular liver suggesting cirrhosis. She ultimately passed the stone. For evaluation of epigastric pain, occult positive blood in the stool and diarrhea with a past history of lymphocytic colitis, the patient will be undergoing panendoscopy this Wednesday. Prep instructions were given. We will be planning on performing biopsies. CT scan findings in 01/2021, suggesting cirrhosis. The patient denies alcohol use, suspect nonalcoholic fatty liver disease, but the patient is not aware whether or not she has been tested for hepatitis C, we will do so. We will also be making sure there is no evidence for esophageal or gastric varices, likely obtain a baseline AFP level and again hepatitis B and C serology if this has not been done in the past. I thank you for the referral of this pleasant lady. Job ID: [id number] DocumentID: [id number] Dictated Date: 07/29/2021 11:14:10 Lay Brother Date: 07/29/2021 11:31:28 Dictated By: OMKAR DUBOSE MD
[~2021-08-01] VITALS: Ht 177.8 cm; Wt 88.0 kg
[~2021-08-01 10:40] MED LIST changes: +AMOX125S47 PO; +ATOR10TA66 PO; +METF-399 PO; +NORT50CA PO; +SERT-413 PO
[2021-08-01] MEDS ORDERED: LACTATED RINGERS 1,000 ML IV STA (10:57)
[2021-08-01 11:00] VITALS: BP 181/104
--- NOTE | 2021-08-01 11:41 | Pre-Op Note & Conscious Sedat ---
Pre-Operative Progress Note H&P Reviewed The H&P was reviewed, patient examined and no changes noted. Date H&P Reviewed: August 01, 2021 Time H&P Reviewed: 11:41 Conscious Sedation Pre-Proced ASA Score 3 For ASA 3 and 4: Consider anesthesia and medical clearance. Also, for patients with a history of failed moderate sedation consider anesthesia. Airway Lungs Heart ASA score ASA 1: a normal healthy patient ASA 2: a patient with a mild systemic disease (mid diabetes, controlled hypertension, obesity ASA 3: a patient with a severe systemic disease that limits activity (angina, COPD, prior Myocardial infarction) ASA 4: a patient with an incapacitating disease that is a constant threat to life (CHF, renal failure) ASA 5: a moribund patient not expected to survive 24 hrs. (ruptured aneurysm) ASA 6: a declared brain- patient whose organs are being harvested. For emergent operations, add the letter E after the classification Mallampati Classification Grade 2 Sedation Plan Analgesia, Amnesia, Plan communicated to team members, Discussed options with patient/fam, Discussed risks with patient/fam The patient is an appropriate candidate to undergo the planned procedure, sedation, and anesthesia. The patient immediately re-assessed prior to indication. OMKAR DUBOSE MD August 01, 2021 11:41
[2021-08-01] MEDS ORDERED: PROPOFOL INJECTION 50 ML IV ONE (12:06)
[2021-08-01] MEDS ORDERED: proPOfol 200 MG/20 ML (DIPRIVAN) VIAL IV ONE (12:39)
[2021-08-01 13:03] VITALS: BP 151/76
[2021-08-01 13:06] VITALS: BP 150/75
[2021-08-01 13:10] VITALS: BP 164/84
--- NOTE | 2021-08-01 13:11 | Anesthesia-General Post-Op ---
MAC Patient Condition Mental Status/LOC: Same as Preop Cardiovascular: Satisfactory Nausea/Vomiting: Absent Respiratory: Satisfactory Pain: Controlled Complications: Absent Post Op Complications Complications None Follow Up Care/Instructions Patient Instructions None needed. Anesthesiology Discharge Order Discharge Order Patient is doing well, no complaints, stable vital signs, no apparent adverse anesthesia problems. No complications reported per nursing. GRANT BELTRAN CRNA August 01, 2021 13:11
[2021-08-01 13:23] VITALS: BP 164/84
--- NOTE | 2021-08-01 22:27 | OPERATIVE REPORT ---
DATE OF SERVICE: PANENDOSCOPY SUMMARY Panendoscopy was performed for the evaluation of diarrhea, past history of lymphocytic colitis with anemia and occult positive blood in the stool with history of reportedly Dariel-en-Y gastric bypass. The patient was placed in the left lateral decubitus position. The endoscope was inserted in the oral cavity and under direct visualization, the esophagus was intubated. The endoscope was passed down the esophagus through stomach into the duodenum. Afferent and efferent limbs were inspected. Assessment: Proximal, mid and distal esophagus were unremarkable. The Z line was distinct without evidence for erosive esophagitis, erythema or Lovett's change. Findings compatible with Dariel-en-Y gastric bypass are noted. No evidence for ulceration, erythema or potential bleeding sites were identified. Normal villous appearing architecture was visualized on gross inspection of the efferent and afferent limbs. Assessment: Unremarkable EGD, save for expected postoperative findings of a Dariel-en-Y gastric bypass. No potential bleeding sites identified. We then proceeded with colonoscopy. The colonoscope was inserted in the rectum and under direct visualization advanced to the mid ascending colon. The cecum was not visualized secondary to technical difficulty. Quality of the prep was good. FINDINGS: The rectum was unremarkable to visual inspection. Biopsy for microscopic colitis was obtained considering her history. There were some punctate areas of erythema noted in the sigmoid colon without evidence for diverticular disease, ulceration or other abnormality. Biopsy was obtained from the sigmoid colon. The descending colon, splenic flexure, transverse colon, hepatic flexure and distal ascending colon were unremarkable. The proximal ascending and cecum were not visualized secondary to technical difficulty. Assessment: There were a few punctate areas of erythema noted in the sigmoid colon without evidence for diverticular disease with an otherwise normal colonoscopy of the proximal ascending colon. Biopsies are pending. If microscopic colitis is present, we will initiate treatment recommendations. Unfortunately, the patient reports that she is unable to afford Entocort. We will discuss more affordable options with expectations pending biopsy results. Job ID: [id number] DocumentID: [id number] Dictated Date: 08/01/2021 13:18:33 Senior Architect Date: 08/01/2021 22:26:12 Dictated By: OMKAR DUBOSE MD
== END 2021-08-01 13:36 | disposition home or self-care (01) ==
LOC: ENDO 10:40
PROVIDERS: ATTEND Internal Medicine
DX: K63.89 Other specified diseases of intestine (principal); R19.7 Diarrhea, unspecified; D64.9 Anemia, unspecified; R19.5 Other fecal abnormalities; E11.9 Type 2 diabetes mellitus without complications; J45.909 Unspecified asthma, uncomplicated; Z98.84 Bariatric surgery status; Z79.84 Long term (current) use of oral hypoglycemic drugs

== ENCOUNTER 2021-09-12 10:02 | Inpatient (IN) | payer MEDICARE ==
[~2021-09-12] VITALS: Ht 177.8 cm; Wt 90.9 kg
[2021-09-12 10:53] LABS: BASOPHILS # (AUTO) 0.1 10^3/uL (0.0-0.1); BASOPHILS % (AUTO) 0 % (0-10); EOSINOPHILS # (AUTO) 0.1 10^3/uL (0.0-0.3); EOSINOPHILS % (AUTO) 0 % (0-10); HEMATOCRIT 42 % (35-52); HEMOGLOBIN 13.6 g/dL (11.5-16.0); LYMPHOCYTES % (AUTO) 5 % (12-44); MEAN CORPUSCULAR HEMOGLOBIN 27 pg (25-34); MEAN CORPUSCULAR HGB CONC 33 g/dL (32-36); MEAN CORPUSCULAR VOLUME 84 fL (80-99); MEAN PLATELET VOLUME 11.4 fL (9.0-12.2); MONOCYTES # (AUTO) 0.9 10^3/uL (0.0-1.0); MONOCYTES % (AUTO) 5 % (0-12); NEUTROPHILS # (AUTO) 17.3 10^3/uL (1.8-7.8); NEUTROPHILS % (AUTO) 89 % (42-75); PLATELET COUNT 184 10^3/uL (130-400); WHITE BLOOD COUNT 19.5 10^3/uL (4.3-11.0)
[2021-09-12 10:57] LABS: ALBUMIN 3.7 GM/DL (3.2-4.5); POTASSIUM 3.1 MMOL/L (3.6-5.0)
[2021-09-12 10:58] LABS: CALCIUM 8.7 MG/DL (8.5-10.1)
[2021-09-12 10:59] LABS: TOTAL PROTEIN 7.1 GM/DL (6.4-8.2)
[2021-09-12] MEDS ORDERED: fentaNYL INJ 100 MCG/2 ML AMP IVP ONE (11:00)
[2021-09-12] MEDS ORDERED: ONDANSETRON 4 MG/2 ML (SDV) Z0FRAN IVP ONE (11:00)
[2021-09-12] MEDS ORDERED: HYOSCYAMINE 0.125 MG (LEVSIN) TAB SL ONE (11:00)
[2021-09-12 11:01] LABS: BILIRUBIN,TOTAL 2.3 MG/DL (0.1-1.0); INR 1.5 (0.8-1.4); PROTHROMBIN TIME PATIENT 18.5 SEC (12.2-14.7)
[2021-09-12 11:03] LABS: CREATININE SERUM 1.33 MG/DL (0.60-1.30)
[2021-09-12 11:10] LABS: BAND NEUTROPHILS 18 %; LYMPHOCYTES % (MANUAL) 3 %; MONOCYTES % (MANUAL) 3 %; NEUTROPHILS % (MANUAL) 76 %
[2021-09-12 11:12] LABS: ERYTHROCYTE SEDIMENTATION RATE 18 MM/HR (0-30); RBC MORPH NORMAL
[2021-09-12] MEDS ORDERED: POTASSIUM CL 10MEQ/50ML IVPB 50 ML IV ONE (11:30)
[2021-09-12] MEDS ORDERED: NS IV 1000 ML 1,000 ML IV SCH ×2 (11:30→12:45)
[2021-09-12] MEDS ORDERED: PIPERACILLIN SODIUM/TAZOBACTAM 4.5 GM in NS (IVPB) 100 ML IV ONE (11:45)
--- NOTE | 2021-09-12 13:33 | Diagnostic Imaging Report ---
Indication: Diarrhea. Time of Exam: 1:17 PM Correlation is made with prior chest from 02/16/2021. Findings: The heart size is normal. The pulmonary vascularity is unremarkable. The lungs are clear. No infiltrate, effusion or pneumothorax is detected. Impression: No acute cardiopulmonary process is detected. Dictated by: Dictated on workstation # [id number]
--- NOTE | 2021-09-12 13:43 | Diagnostic Imaging Report ---
EXAMINATION: CT abdomen and pelvis without contrast. TECHNIQUE: Multiple contiguous axial images were obtained through the abdomen and pelvis without the use of intravenous contrast. All CT scans use one or more of the following dose optimizing techniques: automated exposure control, MA and/or KvP adjustment based on patient size and exam type or iterative reconstruction. HISTORY: Abd pain, sepsis COMPARISON: 02/16/2021 FINDINGS: Lung bases: The lung bases are clear. Solid organs: Diffuse hypoattenuation and nodular contour of the liver. The gallbladder is surgically absent. There is no biliary ductal dilation. Pancreas is normal. Spleen is normal. Adrenal glands are normal. There is a nonobstructing left renal calculi measuring up to 0.2 cm. No hydronephrosis. Bowel: Surgical changes from gastric bypass. No bowel obstruction. There is diffuse wall thickening of the colon with associated inflammatory stranding. Peritoneum: There is trace ascites along the liver. No loculated fluid collection or free air. No suspicious lymphadenopathy. Vasculature: Normal without aneurysm. Musculoskeletal: No suspicious osseous lesion or compression fracture. Pelvis: The uterus is surgically absent. No adnexal mass. The urinary bladder is normal. IMPRESSION: 1. Diffuse wall thickening and inflammatory stranding of the colon which is concerning for an infectious or inflammatory colitis. Less likely differential consideration could include portal colopathy given the cirrhotic morphology of the liver. 2. Morphologic changes of cirrhosis with trace ascites and underlying hepatic steatosis. Dictated by: Dictated on workstation # [id number]
--- NOTE | 2021-09-12 14:24 | ED General ---
General Chief Complaint: Abdominal/GI Problems Stated Complaint: DIARRHEA,WEAKNESS Nursing Triage Note: PT TO ROOM 06 WITH C/O DIARRHEA FOR "SEVERAL MONTHS". PT REPORTS BEING SEEN BY DR BARNETT YESTERDAY AND GIVEN IV FLUIDS AND MEDS. PT STATES SHE WAS GIVEN PRESCRIPTIONS AND WAS UNABLE TO TAKE THEM BECAUSE SHE WAS "NOT ABLE TO GET OFF THE COUCH". PT REPORTS LEFT SIDE ABD PAIN AND LEFT FLANK PAIN. Source of Information: Patient Exam Limitations: No Limitations History of Present Illness Date Seen by Provider: Sep 12, 2021 Time Seen by Provider: 10:15 Initial Comments Emily Robles is a 71-year-old woman who presents to the emergency room with complaints of large volume of liquidy diarrhea that is chronic but worse over the past month. She also reports fever yesterday up to 103 F. Her chronic abdominal pain is worse than usual. She is notably tachycardic on presentation. Mentation seems sluggish which she acknowledges. Although she has had significant symptoms for a month, she reports her decision to come to the emergency room this morning was because of inability to get up. She has a history of lymphocytic colitis. This was confirmed by colonoscopy with biopsies performed by Dr. Barnett in July. Patient also has history of diabetes and cirrhosis. Cirrhosis is believed to be caused by fatty liver disease. Patient reports she has been on prednisone 15 mg daily for treatment of her colitis and cholestyramine for treatment of the chronic diarrhea. She is not febrile at this time but her heart rate is in the 1 30-1 40 range. Allergies and Home Medications Allergies Coded Allergies: codeine (Unverified Allergy, Unknown, RASH, 07/30/21) Patient Home Medication List Home Medication List Reviewed: Yes Amoxicillin/Potassium Clav (Augmentin 125-31.25 mg/5 ml) 125 Mg-31.25 Mg/5 Ml Susp.recon, 0 PO BID, (Reported) Entered as Reported by: PRAKASH TAMEZ on 07/30/211648 Atorvastatin Calcium (Atorvastatin Calcium) 10 Mg Tablet, 10 MG PO HS, (Reported) Entered as Reported by: PRAKASH TAMEZ on 07/30/211648 Metformin HCl (Metformin HCl) 1,000 Mg Tablet, 1,000 MG PO BID, (Reported) Entered as Reported by: PRAKASH TAMEZ on 07/30/211648 Nortriptyline HCl (Nortriptyline HCl) 50 Mg Capsule, 50 MG PO HS, (Reported) Entered as Reported by: PRAKASH TAMEZ on 07/30/211648 Sertraline HCl (Sertraline HCl) 50 Mg Tablet, 50 MG PO HS, (Reported) Entered as Reported by: PRAKASH TAMEZ on 07/30/211648 Review of Systems Review of Systems Constitutional: see HPI EENTM: no symptoms reported Respiratory: no symptoms reported Cardiovascular: no symptoms reported Gastrointestinal: no symptoms reported Genitourinary: no symptoms reported : No Musculoskeletal: no symptoms reported Skin: no symptoms reported Psychiatric/Neurological: See HPI Hematologic/Lymphatic: No Symptoms Reported Immunological/Allergic: see HPI Past Apudinz-Gvormt-Elmxvn Hx Patient Social History Tobacco Use?: No Smoking Status: Never a Smoker Smokeless Tobacco Frequency: Never a User Use of E-Cig and/or Vaping dev: No Use of E-Cig and/or Vaping Bradley: Never a User Substance use?: No Alcohol Use?: No Pt feels they are or have been: No Immunizations Up To Date First/Initial COVID19 Vaccinat: Apr COVID19 Vaccination Ross: May COVID19 Vaccination Date: YES 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: [employer] Seasonal Allergies Seasonal Allergies: Yes Past Medical History Surgeries: Yes (CARDIAC ABLATION/GASTRIC BYPASS/R TKR/BILAT CATARACTS/) Abdominal (Colonoscopy with biopsy, gastric bypass), Bladder Surgery, Cardiac (Ablation), Eye Surgery, Gallbladder, Joint Replacement, Orthopedic Respiratory: Yes (ASTHMA WITH UPPER RESP INFECTIONS) Asthma Cardiac: Yes (HAS HAD CARDIAC ABLATION/DR NITHIN LANIER FROM [facility] FOR CARDIO ) Irregular Heartbeat Neurological: No : No Reproductive Disorders: No Genitourinary: Yes (HAS INTERSTIM PLACED/INCONTINENCE) Bladder Infection, Kidney Stones Gastrointestinal: Yes (LYMPHOCYTIC COLITIS) Liver Disease/Jaundice (Fatty liver disease), Cirrhosis Musculoskeletal: Yes (CHRONIC JOINT PAIN) Arthritis Endocrine: Yes Diabetes, Non-Insulin dep HEENT: Yes Cataract Loss of Vision: Bilateral Cancer: Yes Skin Did You Recieve Any Treatments: Yes What Type of Treatment Did You: Surgical Intervention Psychosocial: No Integumentary: No Blood Disorders: No Physical Exam-Suspected Sepsis Physical Exam Vital Signs Vital Signs - First Documented 09/12/21 10:08 Temp 36.5 Pulse 119 Resp 18 B/P (MAP) 124/70 (88) O2 Delivery Room Air Capillary Refill : Less Than 3 Seconds Blood Pressure Mean: 88 Height, Weight, BMI Height: '" Weight: lbs. oz. 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 Increased effort to answer questions.) Skin: normal color, warm/dry Focused Exam Sepsis Stage: Severe Sepsis Possible Source: GI Tract/Intra-Abdominal Lactate Level 09/12/21 10:55: Lactic Acid Level 3.54*H 09/12/21 14:17: Time of Focused Exam: 14:30 Respiratory: Lungs Clear, Normal Breath Sounds Cardiovascular: No Edema, Systolic Murmur, Tachycardia Capillary Refill: Less Than 3 Seconds Peripheral Pulses: 1+ Radial Pulses (R) Skin: warm/dry Lactic Acid Level Laboratory Tests Test 09/12/21 10:55 09/12/21 14:17 Lactic Acid Level 3.54 MMOL/L (0.50-2.00) *H Within 3hrs of presentation: Admin fluids, Admin 30ml/kg IBW due to BMI>30, Admin ABX, Blood cultures prior to ABX's, Focus exam, Lactate level Progress/Results/Core Measures Suspected Sepsis SIRS Temperature: Pulse: 119 Respiratory Rate: 18 Laboratory Tests 09/12/21 10:11: White Blood Count 19.5H Blood Pressure 124 /70 Mean: 88 09/12/21 10:55: Lactic Acid Level 3.54*H 09/12/21 14:17: Laboratory Tests 09/12/21 10:11: Creatinine 1.33H, INR Comment 1.5H, Platelet Count 184, Total Bilirubin 2.3H Results/Orders Lab Results Laboratory Tests Test 09/12/21 10:11 09/12/21 10:55 09/12/21 12:15 09/12/21 14:17 Range/Units White Blood Count 19.5 H 4.3-11.0 10^3/uL Red Blood Count 4.97 3.80-5.11 10^6/uL Hemoglobin 13.6 11.5-16.0 g/dL Hematocrit 42 35-52 % Mean Corpuscular Volume 84 80-99 fL Mean Corpuscular Hemoglobin 27 25-34 pg Mean Corpuscular Hemoglobin Concent 33 32-36 g/dL Red Cell Distribution Width 14.8 H 10.0-14.5 % Platelet Count 184 130-400 10^3/uL Mean Platelet Volume 11.4 9.0-12.2 fL Immature Granulocyte % (Auto) 1 % Neutrophils (%) (Auto) 89 H 42-75 % Lymphocytes (%) (Auto) 5 L 12-44 % Monocytes (%) (Auto) 5 0-12 % Eosinophils (%) (Auto) 0 0-10 % Basophils (%) (Auto) 0 0-10 % Neutrophils # (Auto) 17.3 H 1.8-7.8 10^3/uL Lymphocytes # (Auto) 1.0 1.0-4.0 10^3/uL Monocytes # (Auto) 0.9 0.0-1.0 10^3/uL Eosinophils # (Auto) 0.1 0.0-0.3 10^3/uL Basophils # (Auto) 0.1 0.0-0.1 10^3/uL Immature Granulocyte # (Auto) 0.2 H 0.0-0.1 10^3/uL Neutrophils % (Manual) 76 % Lymphocytes % (Manual) 3 % Monocytes % (Manual) 3 % Band Neutrophils 18 % Blood Morphology Comment NORMAL Erythrocyte Sedimentation Rate 18 0-30 MM/HR Prothrombin Time 18.5 H 12.2-14.7 SEC INR Comment 1.5 H 0.8-1.4 Activated Partial Thromboplast Time 35 24-35 SEC Sodium Level 131 L 135-145 MMOL/L Potassium Level 3.1 L 3.6-5.0 MMOL/L Chloride Level 97 L 98-107 MMOL/L Carbon Dioxide Level 17 L 21-32 MMOL/L Anion Gap 17 H 5-14 MMOL/L Blood Urea Nitrogen 27 H 7-18 MG/DL Creatinine 1.33 H 0.60-1.30 MG/DL Estimat Glomerular Filtration Rate 43 BUN/Creatinine Ratio 20 Glucose Level 212 H 70-105 MG/DL Calcium Level 8.7 8.5-10.1 MG/DL Corrected Calcium 8.9 8.5-10.1 MG/DL Total Bilirubin 2.3 H 0.1-1.0 MG/DL Aspartate Amino Transf (AST/SGOT) 28 5-34 U/L Alanine Aminotransferase (ALT/SGPT) 25 0-55 U/L Alkaline Phosphatase 106 40-136 U/L C-Reactive Protein High Sensitivity 25.10 H 0.00-0.50 MG/DL Total Protein 7.1 6.4-8.2 GM/DL Albumin 3.7 3.2-4.5 GM/DL Procalcitonin 1.49 H <0.10 NG/ML Lactic Acid Level 3.54 *H 0.50-2.00 MMOL/L Influenza Type A (RT-PCR) Not Detected Not Detecte Influenza Type B (RT-PCR) Not Detected Not Detecte SARS-CoV-2 RNA (RT-PCR) Not Detected Not Detecte My Orders Orders - BRENDAN MYERS MD Cbc With Automated Diff (09/12/21 10:36) Comprehensive Metabolic Panel (09/12/21 10:36) Hs C Reactive Protein (09/12/21 10:36) Erythrocyte Sedimentation Rate (09/12/21 10:36) Ed Iv/Invasive Line Start (09/12/21 10:36) Blood Culture (09/12/21 10:45) Sputum Culture (09/12/21 10:45) Urinalysis (09/12/21 10:45) Urine Culture (09/12/21 10:45) Protime With Inr (09/12/21 10:45) Partial Thromboplastin Time (09/12/21 10:45) Chest 1 View, Ap/Pa Only (09/12/21 10:45) Vital Signs Adult Sepsis Patie Q15M (09/12/21 10:45) O2 (09/12/21 10:45) Remove Rings In Anticipation O (09/12/21 10:45) Lactic Acid Analyzer (09/12/21 10:45) Procalcitonin (Pct) (09/12/21 10:45) Covid 19 Inhouse Test (09/12/21 10:45) Influenza A And B By Pcr (09/12/21 10:45) Fentanyl Inj (Sublimaze Injection) (09/12/21 11:00) Ondansetron Injection (Zofran Injectio (09/12/21 11:00) Hyoscyamine Sl Tablet (Levsin Sl Tablet) (09/12/21 11:00) Manual Differential (09/12/21 10:11) Ns Iv 1000 Ml (Sodium Chloride 0.9%) (09/12/21 11:30) Potassium Cl 10meq/50ml Ivpb (Kcl 10 Meq (09/12/21 11:30) Ct Abdomen/Pelvis Wo (09/12/21 11:29) Piperacillin Sodium/Tazobactam (Zosyn Vi (09/12/21 11:45) Stool Culture (09/12/21 11:45) Fecal Wbc (09/12/21 11:45) C Difficile Ag + Toxin A/B. (09/12/21 11:45) Occult Blood Stool (09/12/21 11:45) Ns Iv 1000 Ml (Sodium Chloride 0.9%) (09/12/21 12:45) Ns Iv 500 Ml (Sodium Chloride 0.9%) (09/12/21 14:30) Ed Admission (Communication) (09/12/21 14:30) Code/Resuscitation (09/12/21 14:37) Medications Given in ED Current Medications Medications Dose Ordered Sig/Dalia Route Start Time Stop Time Status Last Admin Dose Admin Fentanyl Citrate 50 mcg ONCE ONCE IVP 09/12/21 11:00 09/12/21 11:01 DC 09/12/21 11:04 50 MCG Hyoscyamine Sulfate 0.25 mg ONCE ONCE SL 09/12/21 11:00 09/12/21 11:01 DC 09/12/21 11:04 0.25 MG Ondansetron HCl 4 mg ONCE ONCE IVP 09/12/21 11:00 09/12/21 11:01 DC 09/12/21 11:04 4 MG Piperacillin Sod/ Tazobactam Sod 4.5 gm/Sodium Chloride 100 ml @ 200 mls/hr ONCE ONCE IV 09/12/21 11:45 09/12/21 12:14 DC 09/12/21 13:04 200 MLS/HR Potassium Chloride 50 ml @ 50 mls/hr ONCE ONCE IV 09/12/21 11:30 09/12/21 12:29 DC 09/12/21 11:43 50 MLS/HR Vital Signs/I&O 09/12/21 10:08 Temp 36.5 Pulse 119 Resp 18 B/P (MAP) 124/70 (88) O2 Delivery Room Air Capillary Refill : Less Than 3 Seconds Blood Pressure Mean: 88 Progress Note : Progress Note Patient was interviewed and examined shortly after arrival. Septic work-up was pursued. COVID and flu test were negative. Labs and CT imaging suggest severe sepsis from colitis. Antibiotic therapy was started with Zosyn. Fluid bolus of 30 mL/kg (2500 mL) was administered. Blood cultures and lactic acid were obtained. Symptoms were treated with fentanyl, Zofran, and Levsin. Case was discussed with Dr. Genao who accepts admission and Dr. Portillo was consulted for surgery. CODE STATUS was reviewed with patient and she requests full CODE STATUS. Diagnostic Imaging Diagonstic Imaging: CT Plain Films/CT/US/NM/MRI: abdomen, pelvis Comments NAME: EMILY ROBLES [facility] REC#: [id number] PT STATUS: REG ER : 1950 PHYSICIAN: BRENDAN MYERS MD ADMIT DATE: 09/12/21/ER Signed Date of Exam:09/12/21 CT ABDOMEN/PELVIS WO EXAMINATION: CT abdomen and pelvis without contrast. TECHNIQUE: Multiple contiguous axial images were obtained through the abdomen and pelvis without the use of intravenous contrast. All CT scans use one or more of the following dose optimizing techniques: automated exposure control, MA and/or KvP adjustment based on patient size and exam type or iterative reconstruction. HISTORY: Abd pain, sepsis COMPARISON: 02/16/2021 FINDINGS: Lung bases: The lung bases are clear. Solid organs: Diffuse hypoattenuation and nodular contour of the liver. The gallbladder is surgically absent. There is no biliary ductal dilation. Pancreas is normal. Spleen is normal. Adrenal glands are normal. There is a nonobstructing left renal calculi measuring up to 0.2 cm. No hydronephrosis. Bowel: Surgical changes from gastric bypass. No bowel obstruction. There is diffuse wall thickening of the colon with associated inflammatory stranding. Peritoneum: There is trace ascites along the liver. No loculated fluid collection or free air. No suspicious lymphadenopathy. Vasculature: Normal without aneurysm. Musculoskeletal: No suspicious osseous lesion or compression fracture. Pelvis: The uterus is surgically absent. No adnexal mass. The urinary bladder is normal. IMPRESSION: 1. Diffuse wall thickening and inflammatory stranding of the colon which is concerning for an infectious or inflammatory colitis. Less likely differential consideration could include portal colopathy given the cirrhotic morphology of the liver. 2. Morphologic changes of cirrhosis with trace ascites and underlying hepatic steatosis. Dictated by: Dictated on workstation # [id number] Dict: 09/12/219 Trans: 09/12/211348 ACB [id number] Interpreted by: SHASTA FREGOSO DO Electronically signed by: SHASTA FREGOSO DO 09/12/21 134 Diagonstic Imaging: Xray Plain Films/CT/US/NM/MRI: chest Comments NAME: EMILY ROBLES [facility] REC#: [id number] PT STATUS: REG ER : 1950 PHYSICIAN: BRENDAN MYERS MD ADMIT DATE: 09/12/21/ER Draft Date of Exam:09/12/21 CHEST 1 VIEW, AP/PA ONLY Indication: Diarrhea. Time of Exam: 1:17 PM Correlation is made with prior chest from 02/16/2021. Findings: The heart size is normal. The pulmonary vascularity is unremarkable. The lungs are clear. No infiltrate, effusion or pneumothorax is detected. Impression: No acute cardiopulmonary process is detected. Dictated on workstation # [id number] Dict: 09/12/211331 Trans: 09/12/21 133 ACB [id number] Interpreted by: MARLEY ROBBINS MD Departure Communication (Admissions) Time/Spoke to Admitting Phy: 14:20 Dr. Genao Time/Spoke to Consulting Phy: 14:30 Dr. Portillo Impression Primary Impression: Severe sepsis Additional Impressions: Colitis Acute kidney injury Hypokalemia Lymphocytic colitis Disposition: ADMITTED INPATIENT Condition: Improved Admissions Decision to Admit Reason: Admit from ER (General) Decision to Admit/Date: Sep 12, 2021 Time/Decision to Admit Time: 14:20 Departure-Patient Inst. Referrals: OMKAR BARNETT MD (PCP/Family) Primary Care Physician Copy Copies To 1: OMKAR BARNETT MD, JOSHUA T MD Sep 12, 2021 14:23
[2021-09-12] MEDS ORDERED: NS IV 500 ML 500 ML IV ONE (14:30)
[2021-09-12] MEDS ORDERED: ONDANSETRON 4 MG/2 ML (SDV) Z0FRAN IV PRN (15:30)
[2021-09-12] MEDS ORDERED: diphenhydrAMINE 25 MG TAB (BENADRYL) PO PRN (15:30)
[2021-09-12] MEDS ORDERED: ONDANSETRON 4 MG (ZOFRAN) ORAL DISSOLVE TAB PO PRN (15:30)
[2021-09-12] MEDS ORDERED: ANTACID SUSP 30 ML UDC (MYLANTA) PO PRN (15:30)
[2021-09-12] MEDS ORDERED: MELATONIN 3 MG TABLET PO PRN (15:30)
[2021-09-12] MEDS ORDERED: morphine INJ 10 MG/ML 1ML (SYR OR VIAL) IVP PRN (15:30)
[2021-09-12] MEDS ORDERED: polyethylene glycoL POWDER 17 GM (MIRALAX) PACK PO PRN (15:30)
[2021-09-12] MEDS ORDERED: ACETAMINOPHEN 325 MG TABLET PO PRN (15:30)
[2021-09-12] MEDS ORDERED: cefTRIAXone 2,000 MG in NS (IVPB) 50 ML IV SCH (15:45)
[2021-09-12] MEDS: NS IV 1000 ML 1,000 ML IV SCH ×2 (15:56→20:14)
[2021-09-12] MEDS: metroNIDAZOLE 500MG/100ML IVPB 100 ML IV SCH ×2 (15:56→23:04)
[2021-09-12] MEDS: ENOXAPARIN 40 MG/0.4 ML (LOVENOX) SYR SC SCH (15:57)
--- NOTE | 2021-09-12 16:04 | Tele-ICU Progress Note ---
Subjective Date Seen by a Provider: Sep 12, 2021 Time Seen by a Provider: 16:14 Subjective/Events-last exam Available chart/vitals/labs/images reviewed. Video assessment done using telemetry ICU camera, rest of exam as per RN. Discussion with the RN, exam as per RN. Hospital course She is a 71-year-old female with past medical history of fall lymphocyte colitis diagnosed about 3 years ago with the colonoscopy to biopsy after she developed recurrent diarrhea and she was given at that time. No side with resolution of symptoms but lately she is started on a prednisone. She has been having 6-7 loose stools for the last 3 to 4 months but now she is feeling very weak and had a few more she is unable to get to her car due to weakness. She also has a about 20 pound weight loss lately unintended. She has a history of fall Dariel-en-Y gastric bypass surgery in 2009. Since then she reportedly has occult blood positive in the stool but otherwise it is not revealing. Currently she has a mild cramping in the abdomen. No blood in the stool grossly. She is evaluated with a CT of the abdomen and pelvis which showed a colonic thickening. Other past medical history includes type 2 diabetes mellitus, hyperlipidemia and depression. a telemetry ICU consult is not placed hence I am doing evaluation per telemetry ICU protocol Review of Systems ROS PER RN Sepsis Event Evaluation Height, Weight, BMI Height: '" Weight: lbs. oz. kg; 27.39 BMI Method: Focused Exam Lactate Level 09/12/21 10:55: Lactic Acid Level 3.54*H 09/12/21 14:17: Lactic Acid Level 2.07*H Time of Focused Exam: 14:30 Lactic Acid Level Laboratory Tests Test 09/12/21 14:17 Lactic Acid Level 2.07 MMOL/L (0.50-2.00) *H Exam Exam Patient acknowledged, consented, and participated in this virtual visit which was conducted using real time audio/video Vital Signs Date Time Temp Pulse Resp B/P (MAP) Pulse Ox O2 Delivery O2 Flow Rate FiO2 09/12/21 15:35 37.2 112 18 112/65 100 Room Air 09/12/21 15:29 66 09/12/21 10:08 36.5 119 18 124/70 (88) Room Air Height & Weight Height: '" Weight: lbs. oz. 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 Increased effort to answer questions.) Other comments PE PER RN Results Lab Laboratory Tests 09/12/21 10:11 Assessment/Plan Assessment/Plan 1. Acute exacerbation of lymphocytic colitis however infectious colitis cannot be ruled out 2. Lactic acidosis due to volume loss from diarrhea 3. Acute kidney injury due to dehydration 4. History of Dariel-en-Y gastric bypass surgery. 5. Cirrhosis of the liver secondary to [place]. 6. History of depression and type 2 diabetes mellitus. Recommendations 1. Aggressive hydration with IV fluids 2. In view of that she has been on oral prednisone and currently develop her diarrhea I will start on Solu-Medrol for a short period 3. IV antibiotics per primary care physician 4. Diabetes management per primary care physician and keep blood sugars average less than 200. 5. DVT prophylaxis and ulcer prophylaxis. 6. Video visit made and discussed with the patient and her relative as well as ICU nurse. Critical Care: Critically Ill Patient Time spent with patient (mins): 20 CHLOE LAURENT MD Sep 12, 2021 16:04
[2021-09-12] MEDS ORDERED: PIPERACILLIN SODIUM/TAZOBACTAM 4.5 GM in NS (IVPB) 100 ML IV SCH (19:00)
[2021-09-12 19:54] LABS: BILIRUBIN,URINE NEGATIVE (NEGATIVE); CLARITY,URINE CLEAR; COLOR,URINE YELLOW; GLUCOSE, URINE (UA) NEGATIVE (NEGATIVE); KETONES,URINE NEGATIVE (NEGATIVE); LEUKOCYTE ESTERASE ,URINE 2+ (NEGATIVE); NITRITE,URINE POSITIVE (NEGATIVE); PROTEIN,URINE TRACE (NEGATIVE)
[2021-09-12] MEDS: inSUlin ASPART (NovoLOG) 1 UNIT/0.01 ML (CHARGE PER UNIT) SC SCH (19:55)
[2021-09-12 20:02] LABS: BACTERIA,URINE FEW /HPF; WBC,URINE 0-2 /HPF
[2021-09-12] MEDS: FAMOTIDINE 20 MG (PEPCID) TABLET PO SCH (20:14)
[2021-09-12] MEDS ORDERED: LACTATED RINGERS 1,000 ML IV SCH (20:45)
[2021-09-12] MEDS ORDERED: LACTATED RINGERS 1,000 ML IV ONE (21:00)
[2021-09-12] MEDS ORDERED: FAMOTIDINE 20 MG (PEPCID) TABLET PO SCH (21:00)
[2021-09-12] MEDS: methylPREDNISolone 125 MG (Solu-MEDROL) VIAL IVP SCH (21:06)
[2021-09-12 21:27] LABS: CALCIUM 7.6 MG/DL (8.5-10.1)
[2021-09-12 21:32] LABS: CREATININE SERUM 1.18 MG/DL (0.60-1.30)
[2021-09-12 21:34] LABS: MAGNESIUM 1.3 MG/DL (1.6-2.4)
--- NOTE | 2021-09-12 22:29 | History & Physical-Hospitalist ---
History of Present Illness HPI/Chief Complaint Emily Spring is a 71 year old female with PMH lymphocytic colitis on prednisone, type 2 diabetes mellitus, hyperlipidemia, who presented with diarrhea. She reports about ten episodes of watery diarrhea so far today. She denies bloody stools. She reports diffuse abdominal pain. She denies nausea and vomiting. She reports fevers and chills. She denies chest pain and shortness of breath. She is on chronic steroids for lymphocytic colitis. She was recently given a course of antibiotics. She has no history of c diff. Source: patient Exam Limitations: no limitations Date Seen 09/12/21 Time Seen by a Provider: 15:20 Attending Physician Ben Barnett MD PCP Admitting Physician: Adrian Ledesma MD Attending Physician: Adrian Ledesma MD Referring Physician Date of Admission Sep 12, 2021 at 14:31 Home Medications & Allergies Home Medications Reviewed patient Home Medication Reconciliation performed by pharmacy medication reconciliations health and safety technician and/or nursing. Patients Allergies have been reviewed. Allergies Allergies Coded Allergies codeine (Unverified Allergy, Unknown, RASH, 07/30/21) Past Mxlcdef-Kmyhcm-Cwazwq Hx Patient Social History Tobacco Use?: No Smoking Status: Never a Smoker Smokeless Tobacco Frequency: Never a User Use of E-Cig and/or Vaping dev: No Use of E-Cig and/or Vaping Bradley: Never a User Substance use?: No Alcohol Use?: No Pt feels they are or have been: No Immunizations Up To Date First/Initial COVID19 Vaccinat: APR Second COVID19 Vaccination Ross: MAY Seasonal Allergies Seasonal Allergies: Yes Current Status status: No status: No Advance Directives: No Communicates: Verbally Primary Language: Stateless Preferred Spoken Language: Stateless Is interpretation needed?: No Sensory deficits: Vision impairment Implanted or Applied Medical D: None Past Medical History Surgeries: Abdominal (Colonoscopy with biopsy, gastric bypass), Bladder Surgery, Cardiac (Ablation), Eye Surgery, Gallbladder, Joint Replacement, Orthopedic Asthma Irregular Heartbeat Bladder Infection, Kidney Stones Liver Disease/Jaundice (Fatty liver disease), Cirrhosis Arthritis Diabetes, Non-Insulin dep Cataract Loss of Vision: Bilateral Skin Did You Recieve Any Treatments: Yes What Type of Treatment Did You: Surgical Intervention Blood Disorders: No Family Medical History No Pertinent Family Hx Review of Systems Constitutional: chills, fever, malaise EENTM: no symptoms reported Respiratory: no symptoms reported Cardiovascular: no symptoms reported Gastrointestinal: abdominal pain, diarrhea Physical Exam Physical Exam Vital Signs Vital Signs - First Documented 09/12/21 09/12/21 10:08 15:05 Temp 36.5 Pulse 119 Resp 18 B/P (MAP) 124/70 (88) Pulse Ox 99 O2 Delivery Room Air Capillary Refill : Less Than 3 Seconds Height, Weight, BMI Height: '" Weight: lbs. oz. kg; 27.39 BMI Method: General Appearance: No Apparent Distress, WD/WN HEENT: PERRL/EOMI, Pharynx Normal Neck: Normal Inspection, Supple Respiratory: Lungs Clear, Normal Breath Sounds, No Respiratory Distress Cardiovascular: No Murmur, Normal Peripheral Pulses, Tachycardia Gastrointestinal: Normal Bowel Sounds, Soft; No Distended; Guarding, Tenderness Extremity: Normal Inspection, No Pedal Edema Neurologic/Psychiatric: Alert, Oriented x3, Normal Mood/Affect Skin: Normal Color, Warm/Dry Results Results/Procedures Labs Laboratory Tests 09/12/21 10:11 09/12/21 21:11 Patient resulted labs reviewed. Imaging: Reviewed Imaging Report Assessment/Plan Admission Diagnosis Severe sepsis Admission Status: Inpatient Order (span 2 midnights) Reason for Inpatient Admission: IV antibiotics Assessment and Plan Severe sepsis Colitis Lymphocytic colitis SIRS+ with leukocytosis and tachycardia Lactic acid >2 CT abdomen with diffuse colitis Obtain c diff testing Rocephin and Flagyl IV fluids TeleICU consulted IV steroids T2DM Sliding scale insulin HLD Depression Hold home meds DVT prophylaxis: Lovenox Critical Care Critically Ill Patient Diagnosis/Problems Diagnosis/Problems (1) Severe sepsis Status: Acute (2) Colitis Status: Acute (3) Lymphocytic colitis Status: Acute (4) Acute kidney injury Status: Acute (5) Lactic acidosis Status: Acute (6) HLD (hyperlipidemia) Status: Chronic (7) T2DM (type 2 diabetes mellitus) Status: Chronic ADRIAN LEDESMA MD Sep 12, 2021 22:29
[2021-09-12] MEDS: MAGNESIUM 1 GM/100 ML IVPB 100 ML IV SCH (23:39)
[2021-09-12] MEDS: POTASSIUM CL 10MEQ/50ML IVPB 50 ML IV SCH (23:39)
[2021-09-13] MEDS: POTASSIUM CL 10MEQ/50ML IVPB 50 ML IV SCH ×4 (00:23→06:34)
[2021-09-13] MEDS: MAGNESIUM 1 GM/100 ML IVPB 100 ML IV SCH ×2 (00:23→06:34)
--- NOTE | 2021-09-13 03:35 | CONSULTATION REPORT ---
DATE OF SERVICE: ADMITTING PHYSICIAN: Dr. Genao. ATTENDING PRIMARY CARE PHYSICIAN: Dr. Ben Barnett. HISTORY OF PRESENT ILLNESS: The patient is a 71-year-old female who presented to the Emergency Department with diffuse abdominal pain as well as copious diarrhea. She underwent a recent colonoscopy and was found to have some inflammatory changes, which was biopsied and consistent with lymphocytic colitis. She is on steroids for the lymphocytic colitis. A CT scan was performed, which did show diffuse inflammation of the colon. She has taken antibiotics in the past before for this as well. She has not had a history of Clostridium difficile colitis. She will be admitted, placed on bowel rest as well as antibiotics and steroids. PAST MEDICAL HISTORY: Chronic urinary tract infection, cardiac arrhythmia, cirrhosis secondary to liver steatosis, diabetes, cataracts, degenerative joint disease, history of nephrolithiasis. PAST SURGICAL HISTORY: Gastric bypass, cardiac ablation, laparoscopic cholecystectomy, total joint replacement. ALLERGIES: CODEINE. MEDICATIONS: Augmentin 125/31.25 mg b.i.d., atorvastatin 10 mg daily, metformin 1000 mg b.i.d., nortriptyline 50 mg daily, sertraline 50 mg daily. SOCIAL HISTORY: Negative smoke, negative alcohol. FAMILY HISTORY: Noncontributory. PHYSICAL EXAMINATION: VITAL SIGNS: Temperature 36.5, blood pressure 119/58, pulse 113, respirations 26, pulse ox 98% on room air. The majority of this information was obtained through the emergency room physician as well as the patient's electronic medical records. Physical examination will be assessed in the a.m. LABORATORY DATA: WBC 19.5, hemoglobin 13.6, hematocrit 42, platelets 184. BUN 26, creatinine 1.18. Urinalysis, positive nitrite, 2+ leukocyte esterase, few bacteria. ASSESSMENT AND PLAN: A 71-year-old female with diffuse colitis secondary to history of lymphocytic colitis. She will be admitted, placed on bowel rest, IV fluids as well as IV antibiotics to decrease colonic bacterial load. She will also be placed on IV steroids. We will continue to monitor her progress with serial physical examinations as well as overall clinical status and possible repeat CT scan if any changes occur. Job ID: [id number] DocumentID: [id number] Dictated Date: 09/12/2021 23:33:04 [employer]cer Date: 09/13/2021 03:34:38 Dictated By: ROMARIO MORALES MD
[2021-09-13] MEDS: inSUlin ASPART (NovoLOG) 1 UNIT/0.01 ML (CHARGE PER UNIT) SC SCH ×4 (05:15→20:21)
[2021-09-13] MEDS: methylPREDNISolone 125 MG (Solu-MEDROL) VIAL IVP SCH (05:15)
[2021-09-13 06:02] LABS: HEMOGLOBIN 12.5 g/dL (11.5-16.0); MONOCYTES % (AUTO) 3 % (0-12); PLATELET COUNT 105 10^3/uL (130-400)
[2021-09-13 06:05] LABS: BASOPHILS # (AUTO) 0.1 10^3/uL (0.0-0.1); BASOPHILS % (AUTO) 1 % (0-10); EOSINOPHILS % (AUTO) 0 % (0-10); HEMATOCRIT 39 % (35-52); LYMPHOCYTES # (AUTO) 0.7 10^3/uL (1.0-4.0); LYMPHOCYTES % (AUTO) 4 % (12-44); MEAN CORPUSCULAR HEMOGLOBIN 27 pg (25-34); MEAN CORPUSCULAR HGB CONC 32 g/dL (32-36); MEAN CORPUSCULAR VOLUME 86 fL (80-99); MEAN PLATELET VOLUME 12.2 fL (9.0-12.2); MONOCYTES # (AUTO) 0.6 10^3/uL (0.0-1.0); NEUTROPHILS # (AUTO) 15.4 10^3/uL (1.8-7.8); NEUTROPHILS % (AUTO) 90 % (42-75); WHITE BLOOD COUNT 17.1 10^3/uL (4.3-11.0)
[2021-09-13 06:24] LABS: POTASSIUM 3.8 MMOL/L (3.6-5.0)
[2021-09-13 06:25] LABS: CALCIUM 8.1 MG/DL (8.5-10.1)
[2021-09-13 06:29] LABS: CREATININE SERUM 0.97 MG/DL (0.60-1.30); PHOSPHORUS 2.5 MG/DL (2.3-4.7)
[2021-09-13 06:31] LABS: MAGNESIUM 2.1 MG/DL (1.6-2.4)
[2021-09-13] MEDS: KCL 20 MEQ TAB (K-DUR) PO SCH (06:35)
--- NOTE | 2021-09-13 08:48 | Tele-ICU Progress Note ---
Subjective Date Seen by a Provider: Sep 13, 2021 Time Seen by a Provider: 07:25 Subjective/Events-last exam This virtual visit was conducted using real time audio/video. Thank you for asking us to see this patient for sepsis and colitis Recent events: Stool for C. Dif pending. PE: Resting comfortably. VSS. O2 sat97% on RA. HEENT: No obvious masses, adenopathy or JVD. Chest: clear to auscultation. CV: RRR S1 S2 No murmur or added sounds. Abd: Non-tender today. Bowel sounds Y. : Unremarkable. Lynn Y. 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 No obvious focal findings. Extremities: No edema. Capillary refill < 3 seconds. Skin: unremarkable. Results: Elevated WCC 17.1 (decreased), BUN 24. Decreased Na 133. CXR: mehran smith. Available chart/ vitals / labs / images reviewed. Video assessment done using teleICU camera, rest of exam as per RN. A/P: Critical Care: critically ill patient. Cont. IVF, Solumedrol, abx, Pepcid, Violeta., SSI, levemir. Discussed with RN Nancy. Asked RN to reach out to eICU if any questions or concerns later. Time spent with patient/coordination of care with other health professionals (mins): Sepsis Event Evaluation Height, Weight, BMI Height: '" Weight: lbs. oz. kg; 27.39 BMI Method: Focused Exam Lactate Level 09/12/21 19:35: Lactic Acid Level 2.95*H 09/12/21 21:11: Lactic Acid Level 2.29*H 09/12/21 23:43: Lactic Acid Level 1.52 Time of Focused Exam: 14:30 Exam Exam Patient acknowledged, consented, and participated in this virtual visit which was conducted using real time audio/video Vital Signs Date Time Temp Pulse Resp B/P (MAP) Pulse Ox O2 Delivery O2 Flow Rate FiO2 09/13/21 08:00 96 128/74 100 Room Air 09/13/21 08:00 36.0 09/13/21 07:31 81 09/13/21 07:00 70 121/69 98 Room Air 09/13/21 06:15 82 101/55 99 Room Air 09/13/21 04:57 87 103/63 100 Room Air 09/13/21 04:00 Room Air 09/13/21 04:00 89 21 107/68 100 Room Air 09/13/21 03:00 84 19 100/53 98 Room Air 09/13/21 02:00 86 21 106/58 96 Room Air 09/13/21 01:00 91 25 106/61 99 Room Air 09/13/21 01:00 91 09/13/21 00:30 37.2 09/13/21 00:00 99 11 115/64 99 Room Air 09/12/21 23:59 Room Air 09/12/21 23:49 38.0 09/12/21 23:15 38.0 09/12/21 23:00 113 119/58 98 Room Air 09/12/21 22:00 108 119/62 99 Room Air 09/12/21 21:00 112 112/53 99 Room Air 09/12/21 20:00 114 26 108/66 99 Room Air 09/12/21 20:00 Room Air 09/12/21 19:00 116 09/12/21 19:00 113 123/67 97 Room Air 09/12/21 18:00 52 114/68 100 Room Air 09/12/21 17:00 114 112/68 100 Room Air 09/12/21 16:14 Room Air 09/12/21 16:00 110 103/65 100 Room Air 09/12/21 15:35 37.2 112 18 112/65 100 Room Air 09/12/21 15:29 66 09/12/21 15:05 114 16 120/64 99 Room Air 09/12/21 10:08 36.5 119 18 124/70 (88) Room Air I & O 09/13/21 07:00 Intake Total 2700 ml Output Total 525 ml Balance 2175 ml Height & Weight Height: '" Weight: lbs. oz. kg; 27.39 BMI Method: General Appearance: No Apparent Distress, WD/WN HEENT: PERRL/EOMI, Pharynx Normal Neck: Normal Inspection, Supple Respiratory: Lungs Clear, Normal Breath Sounds, No Respiratory Distress Cardiovascular: No Murmur, Normal Peripheral Pulses, Tachycardia Capillary Refill: Less Than 3 Seconds Peripheral Pulses: 1+ Radial Pulses (R) Extremity: Normal Inspection, No Pedal Edema Neurologic/Psychiatric: Alert, Oriented x3, Normal Mood/Affect Skin: Normal Color, Warm/Dry Results Lab Laboratory Tests 09/12/21 10:11 09/12/21 21:11 09/13/21 05:10 Assessment/Plan Assessment/Plan See free text. Critical Care: Critically Ill Patient SHAHNAZ RITCHIE MD Sep 13, 2021 08:48
[2021-09-13] MEDS: metroNIDAZOLE 500MG/100ML IVPB 100 ML IV SCH (08:59)
--- NOTE | 2021-09-13 11:01 | Progress Note ---
Standard Progress Note Progress Notes/Assess & Plan Date Seen by a Provider: Sep 13, 2021 Time Seen by a Provider: 10:00 Progress/Assessment & Plan doing better today. found to be c.diff positive. PE: chest-good BS bilat. heart-regular, no murmurs. extr- no LE edema, neg homans abd-soft, slight distention with moderate diffuse pain. no peritonitis. skin- warm/dry -will start PO vanco Focused Exam Lactate Level 09/12/21 19:35: Lactic Acid Level 2.95*H 09/12/21 21:11: Lactic Acid Level 2.29*H 09/12/21 23:43: Lactic Acid Level 1.52 Time of Focused Exam: 14:30 ROMARIO MORALES MD Sep 13, 2021 11:01
--- NOTE | 2021-09-13 11:26 | Progress Note - Hospitalist ---
Subjective HPI/CC On Admission Date Seen by Provider: Sep 13, 2021 Time Seen by Provider: 09:55 Emily Spring is a 71 year old female with PMH lymphocytic colitis on prednisone, type 2 diabetes mellitus, hyperlipidemia, who presented with diarrhea. She reports about ten episodes of watery diarrhea so far today. She denies bloody stools. She reports diffuse abdominal pain. She denies nausea and vomiting. She reports fevers and chills. She denies chest pain and shortness of breath. She is on chronic steroids for lymphocytic colitis. She was recently given a course of antibiotics. She has no history of c diff. Subjective/Events-last exam She is feeling better. She is still having some abdominal pain. She has been drinking clear liquids. She has not had any fevers. Focused Exam Lactate Level 09/12/21 19:35: Lactic Acid Level 2.95*H 09/12/21 21:11: Lactic Acid Level 2.29*H 09/12/21 23:43: Lactic Acid Level 1.52 Time of Focused Exam: 14:30 Objective Exam Vital Signs Vital Signs Date Time Temp Pulse Resp B/P (MAP) Pulse Ox O2 Delivery O2 Flow Rate FiO2 09/13/21 11:00 92 19 106/73 100 Room Air 09/13/21 08:00 36.0 Capillary Refill : Less Than 3 Seconds General Appearance: No Apparent Distress, WD/WN Respiratory: Lungs Clear, No Respiratory Distress Cardiovascular: Regular Rate, Rhythm, No Murmur Gastrointestinal: Normal Bowel Sounds, Soft, Tenderness Extremity: Normal Inspection, No Pedal Edema Neurologic/Psychiatric: Alert, Normal Mood/Affect Skin: Normal Color, Warm/Dry Results/Procedures Lab Laboratory Tests 09/12/21 21:11 09/13/21 05:10 Patient resulted labs reviewed. Imaging: Reviewed Imaging Report Assessment/Plan Assessment and Plan Assess & Plan/Chief Complaint Severe sepsis C diff colitis History of lymphocytic colitis CT abdomen with diffuse colitis C diff positive Stop Rocephin and Flagyl Begin oral Vancomycin Decrease IV fluids Transitioned to oral prednisone T2DM Sliding scale insulin HLD Depression Hold home meds DVT prophylaxis: Lovenox Critical Care Critically Ill Patient Diagnosis/Problems Diagnosis/Problems (1) Severe sepsis Status: Acute (2) Colitis Status: Acute (3) Lymphocytic colitis Status: Acute (4) Acute kidney injury Status: Acute (5) Lactic acidosis Status: Acute (6) HLD (hyperlipidemia) Status: Chronic (7) T2DM (type 2 diabetes mellitus) Status: Chronic ADRIAN LEDESMA MD Sep 13, 2021 11:26
[2021-09-13] MEDS ORDERED: VANCOMYCIN 125 MG CAPSULE PO SCH (12:00)
[2021-09-13] MEDS: VANCOMYCIN 125 MG CAPSULE PO SCH ×3 (12:33→23:18)
[2021-09-13] MEDS: NS IV 1000 ML 1,000 ML IV SCH ×2 (12:34→23:20)
[2021-09-13] MEDS: ENOXAPARIN 40 MG/0.4 ML (LOVENOX) SYR SC SCH (15:46)
[2021-09-13] MEDS: HYDROcodone/APAP 7.5 MG/325 MG (LORTAB, LORCET PLUS) TABLET PO PRN ×2 (15:48→23:18)
[2021-09-13 16:14] VITALS: BP 119/66
[2021-09-13 19:38] VITALS: BP 119/64
[2021-09-13] MEDS: FAMOTIDINE 20 MG (PEPCID) TABLET PO SCH (20:27)
[2021-09-14 00:40] VITALS: BP 120/68
[2021-09-14] MEDS: inSUlin ASPART (NovoLOG) 1 UNIT/0.01 ML (CHARGE PER UNIT) SC SCH ×4 (05:22→21:30)
[2021-09-14] MEDS: predniSONE 20 MG TAB PO SCH (05:28)
[2021-09-14] MEDS: VANCOMYCIN 125 MG CAPSULE PO SCH ×4 (05:28→23:50)
[2021-09-14 05:51] LABS: POTASSIUM 3.2 MMOL/L (3.6-5.0)
[2021-09-14 05:52] LABS: CALCIUM 8.1 MG/DL (8.5-10.1)
[2021-09-14 05:57] LABS: CREATININE SERUM 0.74 MG/DL (0.60-1.30); PHOSPHORUS 2.5 MG/DL (2.3-4.7)
[2021-09-14] MEDS: MAGNESIUM 1 GM/100 ML IVPB 100 ML IV SCH (06:08)
[2021-09-14] MEDS: POTASSIUM CL 10MEQ/50ML IVPB 50 ML IV SCH (06:08)
[2021-09-14] MEDS: KCL 20 MEQ TAB (K-DUR) PO SCH (06:09)
[2021-09-14 08:00] VITALS: BP 152/73
[2021-09-14] MEDS ORDERED: KCL 10 MEQ TAB (MICRO K) PO ONE (09:00)
[2021-09-14 09:57] LABS: BASOPHILS % (AUTO) 1 % (0-10); EOSINOPHILS % (AUTO) 0 % (0-10); MEAN CORPUSCULAR HEMOGLOBIN 27 pg (25-34); MEAN CORPUSCULAR HGB CONC 32 g/dL (32-36)
[2021-09-14 09:59] LABS: BASOPHILS # (AUTO) 0.1 10^3/uL (0.0-0.1); HEMATOCRIT 36 % (35-52); HEMOGLOBIN 11.4 g/dL (11.5-16.0); LYMPHOCYTES # (AUTO) 0.5 10^3/uL (1.0-4.0); LYMPHOCYTES % (AUTO) 3 % (12-44); MEAN CORPUSCULAR VOLUME 85 fL (80-99); MEAN PLATELET VOLUME 12.6 fL (9.0-12.2); MONOCYTES # (AUTO) 0.6 10^3/uL (0.0-1.0); MONOCYTES % (AUTO) 3 % (0-12); NEUTROPHILS # (AUTO) 17.8 10^3/uL (1.8-7.8); NEUTROPHILS % (AUTO) 92 % (42-75); PLATELET COUNT 115 10^3/uL (130-400); WHITE BLOOD COUNT 19.3 10^3/uL (4.3-11.0)
--- NOTE | 2021-09-14 10:10 | Progress Note ---
Subjective Date Seen by a Provider: Sep 14, 2021 Time Seen by a Provider: 09:40 Subjective/Events-last exam Patient seen with Dr. Portillo. Patient reports doing much better today. Tolerating diet. Diarrhea slowed down. Minimal abdominal pain. No nausea/vomiting. Focused Exam Lactate Level 09/12/21 19:35: Lactic Acid Level 2.95*H 09/12/21 21:11: Lactic Acid Level 2.29*H 09/12/21 23:43: Lactic Acid Level 1.52 Time of Focused Exam: 14:30 Objective Exam Vital Signs Date Time Temp Pulse Resp B/P (MAP) Pulse Ox O2 Delivery O2 Flow Rate FiO2 09/14/21 08:00 98 Room Air 09/14/21 08:00 36.3 77 20 152/73 (99) 98 Room Air 09/14/21 00:40 36.1 78 20 120/68 (85) 100 Room Air 09/13/21 19:45 Room Air 09/13/21 19:38 36.1 87 18 119/64 (82) 100 Room Air 09/13/21 16:14 36.8 100 19 119/66 (83) 99 Room Air 09/13/21 12:00 36.1 96 20 117/65 99 Room Air 09/13/21 12:00 99 Room Air 09/13/21 11:00 92 19 106/73 100 Room Air I & O 09/14/21 07:00 Intake Total 4691 ml Output Total 1175 ml Balance 3516 ml Capillary Refill : Less Than 3 Seconds General Appearance: No Apparent Distress, WD/WN Neck: Normal Inspection, Supple Respiratory: No Accessory Muscle Use, No Respiratory Distress Gastrointestinal: normal bowel sounds, soft, tenderness Extremity: Normal Inspection, Normal Range of Motion Neurologic/Psychiatric: Alert, Oriented x3 Results Lab Laboratory Tests 09/13/21 10:59: Glucometer 224H 09/13/21 15:47: Glucometer 186H 09/13/21 20:19: Glucometer 160H 09/14/21 05:20: Glucometer 151H 09/14/21 05:30: White Blood Count 19.3H, Red Blood Count 4.18, Hemoglobin 11.4L, Hematocrit 36, Mean Corpuscular Volume 85, Mean Corpuscular Hemoglobin 27, Mean Corpuscular Hemoglobin Concent 32, Red Cell Distribution Width 15.1H, Platelet Count 115L, Mean Platelet Volume 12.6H, Immature Granulocyte % (Auto) 2, Neutrophils (%) (Auto) 92H, Lymphocytes (%) (Auto) 3L, Monocytes (%) (Auto) 3, Eosinophils (%) (Auto) 0, Basophils (%) (Auto) 1, Neutrophils # (Auto) 17.8H, Lymphocytes # (Au to) 0.5L, Monocytes # (Auto) 0.6, Eosinophils # (Auto) 0.0, Basophils # (Auto) 0.1, Immature Granulocyte # (Auto) 0.3H, Percent Immature Platelet Fraction 8.3H , Sodium Level 136, Potassium Level 3.2L, Chloride Level 107, Carbon Dioxide Level 17L, Anion Gap 12, Blood Urea Nitrogen 22H, Creatinine 0.74, Estimat Glomerular Filtration Rate 86, BUN/Creatinine Ratio 30, Glucose Level 151H, Calcium Level 8.1L, Phosphorus Level 2.5, Magnesium Level 2.0 Microbiology 09/12/21 C. difficile GDH Antigen & Toxins - Final, Complete 09/12/21 MRSA Screen - Final, Complete MRSA not isolated 09/12/21 Blood Culture - Preliminary, Resulted No growth Assessment/Plan Assessment/Plan Assess & Plan/Chief Complaint A 71-year-old female with diffuse colitis secondary to history of lymphocytic c olitis. VSS WBC 17.1 Continue IV abx, sterioids, pain and nausea meds DVT and PUD prophylaxis TANVIR GUILLORY BIT BENDER Sep 14, 2021 10:10
[2021-09-14] MEDS: HYDROcodone/APAP 7.5 MG/325 MG (LORTAB, LORCET PLUS) TABLET PO PRN (11:01)
[2021-09-14] MEDS: ENOXAPARIN 40 MG/0.4 ML (LOVENOX) SYR SC SCH (15:54)
[2021-09-14 16:26] VITALS: BP 114/62
--- NOTE | 2021-09-14 19:04 | Progress Note - Hospitalist ---
Subjective HPI/CC On Admission Date Seen by Provider: Sep 14, 2021 Time Seen by Provider: 12:30 Emily Spring is a 71 year old female with PMH lymphocytic colitis on prednisone, type 2 diabetes mellitus, hyperlipidemia, who presented with diarrhea. She reports about ten episodes of watery diarrhea so far today. She denies bloody stools. She reports diffuse abdominal pain. She denies nausea and vomiting. She reports fevers and chills. She denies chest pain and shortness of breath. She is on chronic steroids for lymphocytic colitis. She was recently given a course of antibiotics. She has no history of c diff. Subjective/Events-last exam She is feeling better. Her diarrhea is improving. She is still having some abdominal discomfort. She wants to get up and walk around. Focused Exam Lactate Level 09/12/21 19:35: Lactic Acid Level 2.95*H 09/12/21 21:11: Lactic Acid Level 2.29*H 09/12/21 23:43: Lactic Acid Level 1.52 Time of Focused Exam: 14:30 Objective Exam Vital Signs Vital Signs Date Time Temp Pulse Resp B/P (MAP) Pulse Ox O2 Delivery O2 Flow Rate FiO2 09/14/21 16:26 70 18 114/62 (79) 100 Room Air 09/14/21 08:00 36.3 Capillary Refill : Less Than 3 Seconds General Appearance: No Apparent Distress, WD/WN Respiratory: Lungs Clear, No Respiratory Distress Cardiovascular: Regular Rate, Rhythm, No Murmur Gastrointestinal: Normal Bowel Sounds, Soft, Tenderness Extremity: Normal Inspection, No Pedal Edema Neurologic/Psychiatric: Alert, Oriented x3, Normal Mood/Affect Skin: Normal Color, Warm/Dry Results/Procedures Lab Laboratory Tests 09/14/21 05:30 Patient resulted labs reviewed. Imaging: Reviewed Imaging Report Assessment/Plan Assessment and Plan Assess & Plan/Chief Complaint C diff colitis History of lymphocytic colitis CT abdomen with diffuse colitis C diff positive Continue oral Vancomycin Stop IV fluids Continue prednisone T2DM Sliding scale insulin HLD Depression Continue home meds DVT prophylaxis: Lovenox Severe sepsis, resolved Diagnosis/Problems Diagnosis/Problems (1) Severe sepsis Status: Acute (2) Colitis Status: Acute (3) Lymphocytic colitis Status: Acute (4) Acute kidney injury Status: Acute (5) Lactic acidosis Status: Acute (6) HLD (hyperlipidemia) Status: Chronic (7) T2DM (type 2 diabetes mellitus) Status: Chronic ADRIAN LEDESMA MD Sep 14, 2021 19:04
[2021-09-14] MEDS ORDERED: CALCIUM CARBONATE 500 MG (TUMS) TAB.CHEW PO PRN (19:15)
[2021-09-14] MEDS ORDERED: SERTRALINE 50 MG (ZOLOFT) TABLET PO SCH (21:00)
[2021-09-14] MEDS ORDERED: AtorvaSTATin TABLET 10 MG TABLET PO SCH (21:00)
[2021-09-14] MEDS ORDERED: HYDROcodone/APAP 5 MG/325 MG (LORTAB) TAB PO PRN (21:45)
[2021-09-15] VITALS: BP 111/84
[2021-09-15] MEDS: inSUlin ASPART (NovoLOG) 1 UNIT/0.01 ML (CHARGE PER UNIT) SC SCH ×2 (05:47→11:12)
[2021-09-15 05:54] LABS: HEMATOCRIT 36 % (35-52); HEMOGLOBIN 11.8 g/dL (11.5-16.0); MEAN CORPUSCULAR HEMOGLOBIN 27 pg (25-34); MEAN CORPUSCULAR HGB CONC 33 g/dL (32-36); MEAN CORPUSCULAR VOLUME 82 fL (80-99); MEAN PLATELET VOLUME 11.7 fL (9.0-12.2); PLATELET COUNT 59 10^3/uL (130-400)
[2021-09-15 06:00] LABS: ALBUMIN 3.1 GM/DL (3.2-4.5); POTASSIUM 3.6 MMOL/L (3.6-5.0)
[2021-09-15 06:01] LABS: CALCIUM 8.3 MG/DL (8.5-10.1)
[2021-09-15] MEDS: POTASSIUM CL 10MEQ/50ML IVPB 50 ML IV SCH (06:02)
[2021-09-15] MEDS: KCL 20 MEQ TAB (K-DUR) PO SCH (06:02)
[2021-09-15 06:03] LABS: TOTAL PROTEIN 5.8 GM/DL (6.4-8.2)
[2021-09-15 06:04] LABS: BILIRUBIN,TOTAL 0.8 MG/DL (0.1-1.0)
[2021-09-15 06:06] LABS: CREATININE SERUM 0.77 MG/DL (0.60-1.30); PHOSPHORUS 2.1 MG/DL (2.3-4.7)
[2021-09-15] MEDS: VANCOMYCIN 125 MG CAPSULE PO SCH ×2 (06:08→11:54)
[2021-09-15 06:09] LABS: MAGNESIUM 1.9 MG/DL (1.6-2.4)
[2021-09-15] MEDS: predniSONE 20 MG TAB PO SCH (06:09)
[2021-09-15] MEDS: MAGNESIUM 1 GM/100 ML IVPB 100 ML IV SCH (06:11)
[2021-09-15 07:39] VITALS: BP 99/65
[2021-09-15] MEDS ORDERED: KCL 20 MEQ TAB (K-DUR) PO ONE (08:00)
[2021-09-15] MEDS ORDERED: VIT1CAPS44 PO (08:57)
[2021-09-15] MEDS ORDERED: CHOL20002 PO (08:58)
[2021-09-15] MEDS ORDERED: PROP1.5D OP (08:59)
[2021-09-15] MEDS ORDERED: NFBIOT1000 PO (08:59)
[2021-09-15] MEDS ORDERED: CNC1KV IM (09:01)
[2021-09-15] MEDS ORDERED: LOPE-134 PO (09:03)
--- NOTE | 2021-09-15 11:47 | Discharge Summary ---
Diagnosis/Chief Complaint Date of Admission Sep 12, 2021 at 14:31 Date of Discharge Admission Diagnosis Severe sepsis Primary Care Ben Barnett MD Discharge Diagnosis (1) Severe sepsis Status: Acute (2) Colitis Status: Acute (3) Lymphocytic colitis Status: Acute (4) Acute kidney injury Status: Acute (5) Lactic acidosis Status: Acute (6) HLD (hyperlipidemia) Status: Chronic (7) T2DM (type 2 diabetes mellitus) Status: Chronic Discharge Summary Discharge Physical Exam Allergies: Coded Allergies: codeine (Unverified Allergy, Unknown, RASH, 07/30/21) Vitals & I&Os Vital Signs Date Time Temp Pulse Resp B/P (MAP) Pulse Ox O2 Delivery O2 Flow Rate FiO2 09/15/21 08:00 100 Room Air 09/15/21 07:39 36.2 81 18 99/65 (76) Hospital Course Labs (last 24 hrs) Laboratory Tests 09/14/21 15:33: Glucometer 233H 09/14/21 20:32: Glucometer 251H 09/15/21 03:22: Glucometer 117H 09/15/21 05:42: White Blood Count 21.0H, Red Blood Count 4.37, Hemoglobin 11.8, Hematocrit 36, Mean Corpuscular Volume 82, Mean Corpuscular Hemoglobin 27, Mean Corpuscular Hemoglobin Concent 33, Red Cell Distribution Width 15.2H, Platelet Count 59L, Mean Platelet Volume 11.7, Sodium Level 135, Potassium Level 3.6, Chloride Level 108H, Carbon Dioxide Level 14L, Anion Gap 13, Blood Urea Nitrogen 23H, Creatinine 0.77, Estimat Glomerular Filtration Rate 82, BUN/Creatinine Ratio 30, Glucose Level 119H, Calcium Level 8.3L, Corrected Calcium 9.0, Phosphorus Level 2.1L, Magnesium Level 1.9, Total Bilirubin 0.8, Aspartate Amino Transf (AST/SGOT ) 43H, Alanine Aminotransferase (ALT/SGPT) 33, Alkaline Phosphatase 96, Total Protein 5.8L, Albumin 3.1L 09/15/21 05:44: Glucometer 127H 09/15/21 10:54: Glucometer 136H Microbiology 09/12/21 C. difficile GDH Antigen & Toxins - Final, Complete 09/12/21 Urine Culture - Final, Complete Gram Pos Mixed Bacterial Kriss Corynebacterium ureolyticum 09/12/21 MRSA Screen - Final, Complete MRSA not isolated 09/12/21 Blood Culture - Preliminary, Resulted No growth Patient resulted labs reviewed. Pending Labs Laboratory Tests 09/15/21 05:42: White Blood Count 21.0, Red Blood Count 4.37, Hemoglobin 11.8, Hematocrit 36, Mean Corpuscular Volume 82, Mean Corpuscular Hemoglobin 27, Mean Corpuscular Hemoglobin Concent 33, Red Cell Distribution Width 15.2, Platelet Count 59, Mean Platelet Volume 11.7, Sodium Level 135, Potassium Level 3.6, Chloride Level 108, Carbon Dioxide Level 14, Anion Gap 13, Blood Urea Nitrogen 23, Creatinine 0.77, Estimat Glomerular Filtration Rate 82, BUN/Creatinine Ratio 30, Glucose Level 119, Calcium Level 8.3, Corrected Calcium 9.0, Phosphorus Level 2.1, Magnesium Level 1.9, Total Bilirubin 0.8, Aspartate Amino Transf (AST/SGOT) 43, Alanine Aminotransferase (ALT/SGPT) 33, Alkaline Phosphatase 96, Total Protein 5.8, A lbumin 3.1 09/15/21 05:44: Glucometer 127 09/15/21 10:54: Glucometer 136 Imaging: Reviewed Imaging Report Discharge Home Medications: Active Scripts Active Reported Imodium A-D (Loperamide HCl) 2 Mg Tablet 2 Mg PO BID PRN Cyanocobalamin Injection (Cyanocobalamin) 1,000 Mcg/Ml Inj 1,000 Mcg IM ONCE A MONTH INJECTS ON THE 1ST OF EVERY MONTH Systane Complete (Propylene Glycol) 0.6 % Drops 1 Drop OP HS Biotin 1 Mg Tablet 1,000 Mcg PO HS Vitamin D3 (Cholecalciferol (Vitamin D3)) 50 Mcg (2000 Unit) Capsule 50 Mcg PO BID Preservision Areds 2 Softgel (Vit C/E/Zn/Coppr/Lutein/Zeaxan) 250MG-90MG Capsule 1 Each PO HS Atorvastatin Calcium 10 Mg Tablet 10 Mg PO HS Nortriptyline HCl 50 Mg Capsule 50 Mg PO HS Metformin HCl 1,000 Mg Tablet 1,000 Mg PO BID FILLED 01-23-2022 #180/90 DAY SUPPLY Instructions to patient/family Please see electronic discharge instructions given to patient. BEKAH LYN MD Sep 15, 2021 11:47
[2021-09-15] MEDS ORDERED: VANC125C5 PO (11:50)
--- NOTE | 2021-09-15 11:53 | Discharge Inst-Simple/Standard ---
Discharge Inst-Standard Patient Instructions/Follow Up Plan of Care/Instructions/FU: Please continue to take your medications as written. Please follow up with your primary care doctor to follow up this hospital stay. Activity as Tolerated: Yes Discharge Diet: Low Residue Return to The Hospital For: Worsening diarrhea, chest pain, shortness of breath, fever, weakness, if you feel you are getting worse. BEKAH LYN MD Sep 15, 2021 11:53
[2021-09-15] MEDS ORDERED: PRD10T PO (11:54)
--- NOTE | 2021-09-15 11:55 | D/C HH Face to Face Order ---
D/C Face to Face Orders Instructions for Patient Via [facility], Patient Instructions/FollowUp: Please continue to take your medications as written. Please follow up with your primary care doctor to follow up this hospital stay. Physician to follow Patient: Anibal Baez Discharge Diet for Home: Low Residue Patient Data-Allergies,Ht & Wt Patient Allergies: Coded Allergies: codeine (Unverified Allergy, Unknown, RASH, 07/30/21) Home Health Need/Face to Face Date of Face to Face: Sep 15, 2021 Clinical Findings: Generalized weakness and fatigue I have seen Pt [id number]: Yes Discharged To: Home Diagnosis/Conditions: C diff Patient is Homebound due to: Muscle weakness Homebound Status Due to the above stated illness, injury or surgical procedure (medical condition or diagnosis) and associated clinical findings, the patient is homebound because of his/her inability to leave home except with aid of a supportive device and/or person AND leaving the home requires a considerable and taxing effort or is medically contraindicated. Pt req the following assistanc: Aid of another person, Walker Home Health Nursing Orders Home Health Services Order: Nursing Services, Physical Therapy-Evaluate & Treat Home Health Infusion Therapy Line Start Date: Sep 13, 2021 Therapy Orders Therapy Orders: Physical Therapy, PT to assess for OT Therapy Specific Orders: Eval assistive deivces, Teach enviro modifications/safety, Gait training, Increase strength/endurance Certify Stmt I certify that this patient is under my care and that I, a nurse practitioner or a physician; a coding assistant working with me, had a face to face encounter that - meets the physician face to face encounter requirements with this patient as dated. BEKAH LYN MD Sep 15, 2021 11:55
[2021-09-15 13:15] VITALS: BP 99/65
== END 2021-09-15 13:19 | disposition home or self-care (01) | DRG 872 ==
LOC: EDUNIT# 10:02 → ER 10:04 → ICU 14:31 → 4TH 09-13 11:45
PROVIDERS: ADMIT Internal Medicine; ATTEND Internal Medicine
DX: A41.9 Sepsis, unspecified organism (principal); E87.2 Acidosis; A04.72 Enterocolitis due to Clostridium difficile, not specified as recurrent; R65.20 Severe sepsis without septic shock; K52.832 Lymphocytic colitis; E78.5 Hyperlipidemia, unspecified; E11.9 Type 2 diabetes mellitus without complications; F32.A Depression, unspecified; Z79.84 Long term (current) use of oral hypoglycemic drugs; Z79.899 Other long term (current) drug therapy; Z98.84 Bariatric surgery status; K76.0 Fatty (change of) liver, not elsewhere classified; K74.60 Unspecified cirrhosis of liver; M19.90 Unspecified osteoarthritis, unspecified site; Z85.828 Personal history of other malignant neoplasm of skin; E87.6 Hypokalemia; E86.0 Dehydration; Z20.822 Contact with and (suspected) exposure to COVID-19
CPT/HCPCS: 36415; 71045; 74176; 80048; 80053; 81000; 82274; 82947; 83605; 83735; 84100; 84145; 85007; 85025; 85027; 85610; 85652; 85730; 86141; 87015; 87040; 87045; 87046; 87077; 87081; 87088; 87324; 87449; 87636; 87899; 89055

== ENCOUNTER 2021-09-19 12:06 | Emergency (ER) | payer MEDICARE ==
[~2021-09-19] VITALS: Ht 177 cm; Wt 86.1 kg
[~2021-09-19 12:06] MED LIST changes: +CHOL20002 PO; +CNC1KV IM; +LOPE-134 PO; +NFBIOT1000 PO; +PRD10T PO; +PROP1.5D OP; +VANC125C5 PO; +VIT1CAPS44 PO
--- NOTE | 2021-09-19 12:26 | ED General ---
General Chief Complaint: General Problems/Pain Stated Complaint: C DIFF Source of Information: Patient Exam Limitations: No Limitations History of Present Illness Date Seen by Provider: Sep 19, 2021 Time Seen by Provider: 12:23 Initial Comments Patient is a 71-year-old female with a history of C. difficile, type 2 diabetes, lymphocytic colitis who presents ED with left-sided chest pain. Rates pain 4 out of 10. Started sometime this morning cannot recall the exact time. Associated shortness of breath without cough. She states she has had some mild bilateral leg swelling since she was diagnosed with C. difficile last week. She was recently discharged from our facility Wednesday and currently on vancomycin orally. According to family at bedside patient was complaining of some generalized weakness and confusion yesterday. According to son at bedside patient appeared to be more confused sluggish slow to respond. This became worse today. She reports some upper abdominal pain especially after eating. She ate right before arrival and had some upper abdominal discomfort typical results. Denies of any vomiting, diarrhea, hematemesis, hematochezia, fever. She reports frequent urination but this is normal. No history of coronary artery disease, CHF. Allergies and Home Medications Allergies Coded Allergies: codeine (Unverified Allergy, Unknown, RASH, 07/30/21) Patient Home Medication List Home Medication List Reviewed: Yes Atorvastatin Calcium (Atorvastatin Calcium) 10 Mg Tablet, 10 MG PO HS, (Reported) Entered as Reported by: PRAKASH TAMEZ on 07/30/21 1649 Biotin (Biotin) 1 Mg Tablet, 1,000 MCG PO HS, (Reported) Entered as Reported by: GUICHO ANAND on 09/15/21 0859 Cholecalciferol (Vitamin D3) (Vitamin D3) 50 Mcg (2000 Unit) Capsule, 50 MCG PO BID, (Reported) Entered as Reported by: GUICHO ANAND on 09/15/21 0858 Cyanocobalamin (Cyanocobalamin Injection) 1,000 Mcg/Ml Inj, 1,000 MCG IM ONCE A MONTH, (Reported) Entered as Reported by: GUICHO ANAND on 09/15/21 0901 Linezolid (Linezolid) 600 Mg Tablet, 600 MG PO BID Prescribed by: GERRY VEE on 09/19/21 1548 Linezolid (Linezolid) 600 Mg Tablet, 600 MG PO BID Prescribed by: GERRY VEE on 09/19/21 1619 Loperamide HCl (Imodium A-D) 2 Mg Tablet, 2 MG PO BID PRN for DIARRHEA, (Reported) Entered as Reported by: GUICHO ANAND on 09/15/21 0903 Metformin HCl (Metformin HCl) 1,000 Mg Tablet, 1,000 MG PO BID, (Reported) Entered as Reported by: PRAKASH TAMEZ on 07/30/21 1649 Nortriptyline HCl (Nortriptyline HCl) 50 Mg Capsule, 50 MG PO HS, (Reported) Entered as Reported by: PRAKASH TAMEZ on 07/30/21 1649 Prednisone (Prednisone) 10 Mg Tab, 15 MG PO DAILY Prescribed by: BEKAH LYN on 09/15/21 1154 Propylene Glycol (Systane Complete) 0.6 % Drops, 1 DROP OP HS, (Reported) Entered as Reported by: GUICHO ANAND on 09/15/21 0859 Vancomycin HCl (Vancomycin HCl) 125 Mg Capsule, 125 MG PO Q6HR Prescribed by: BEKAH LYN on 09/15/21 1150 Vancomycin HCl (Vancocin HCl) 125 Mg Capsule, 125 MG PO Q6H Prescribed by: GERRY VEE on 09/19/21 1548 Vit C/E/Zn/Coppr/Lutein/Zeaxan (Preservision Areds 2 Softgel) 250MG-90MG Capsule, 1 EACH PO HS, (Reported) Entered as Reported by: GUICHO ANAND on 09/15/21 0857 Discontinued Medications Amoxicillin/Potassium Clav (Augmentin 125-31.25 mg/5 ml) 125 Mg-31.25 Mg/5 Ml Susp.recon, 0 PO BID, (Reported) Discontinued Reason: No Longer Taking Entered as Reported by: PRAKASH TAMEZ on 07/30/21 1649 Review of Systems Review of Systems Constitutional: No chills, No diaphoresis EENTM: No hearing loss, No ear pain, No blurred vision, No double vision Respiratory: No cough, No dyspnea on exertion Cardiovascular: chest pain, edema Gastrointestinal: abdominal pain; No constipation, No diarrhea, No hematemesis, No nausea, No vomiting Genitourinary: No decreased output, No discharge; frequency Musculoskeletal: No back pain Skin: No change in color, No change in hair/nails All Other Systems Reviewed Negative Unless Noted: Yes Past Iwgqzio-Byhhep-Qiywjx Hx Immunizations Up To Date First/Initial COVID19 Vaccinat: Apr COVID19 Vaccination Ross: May COVID19 Vaccination Date: YES Seasonal Allergies Seasonal Allergies: Yes Past Medical History Surgeries: Yes (CARDIAC ABLATION/GASTRIC BYPASS/R TKR/BILAT CATARACTS/) Abdominal, Bladder Surgery, Cardiac, Eye Surgery, Gallbladder, Joint Replacement, Orthopedic Respiratory: Yes (ASTHMA WITH UPPER RESP INFECTIONS) Asthma Cardiac: Yes (HAS HAD CARDIAC ABLATION/DR NITHIN LANIER FROM [place] FOR CARDIO ) Irregular Heartbeat Neurological: No Reproductive Disorders: No Genitourinary: Yes (HAS INTERSTIM PLACED/INCONTINENCE) Bladder Infection, Kidney Stones Gastrointestinal: Yes (LYMPHOCYTIC COLITIS) Liver Disease/Jaundice, Cirrhosis Musculoskeletal: Yes (CHRONIC JOINT PAIN) Arthritis Endocrine: Yes Diabetes, Non-Insulin dep HEENT: Yes Cataract Loss of Vision: Bilateral Cancer: Yes Skin Did You Recieve Any Treatments: Yes What Type of Treatment Did You: Surgical Intervention Psychosocial: No Integumentary: No Blood Disorders: No Family Medical History No Pertinent Family Hx Physical Exam Vital Signs Vital Signs - First Documented 09/19/21 12:12 Pulse 81 Resp 20 B/P (MAP) 163/88 (113) Pulse Ox 100 Capillary Refill : Height, Weight, BMI Height: '" Weight: lbs. oz. kg; 28.75 BMI Method: General Appearance: No Apparent Distress, WD/WN Eyes: Bilateral Eye Normal Inspection, Bilateral Eye PERRL, Bilateral Eye Abnormal EOM HEENT: PERRL/EOMI, TMs Normal, Normal ENT Inspection, Pharynx Normal Neck: Full Range of Motion, Normal Inspection, Non Tender, Supple Respiratory: Chest Non Tender, Lungs Clear, Normal Breath Sounds, No Accessory Muscle Use Cardiovascular: Regular Rate, Rhythm, No Edema, No Gallop, No JVD, No Murmur Gastrointestinal: Normal Bowel Sounds, No Organomegaly, Non Tender, Soft, Tenderness (Epigastric tenderness) Back: Normal Inspection, No CVA Tenderness, No Vertebral Tenderness Extremity: Normal Capillary Refill, Normal Range of Motion, Non Tender, Pedal Edema (Bilateral lower extremity edema +2) Neurologic/Psychiatric: Alert, Oriented x3, No Motor/Sensory Deficits, Normal Mood/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, 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 Norm as Tested Skin: Normal Color, Warm/Dry Focused Exam Lactate Level 09/19/21 12:36: Lactic Acid Level 2.03*H 09/19/21 14:42: Lactic Acid Level 2.16*H Lactic Acid Level Laboratory Tests Test 09/19/21 12:36 09/19/21 14:42 Lactic Acid Level 2.03 MMOL/L (0.50-2.00) *H 2.16 MMOL/L (0.50-2.00) *H Progress/Results/Core Measures Suspected Sepsis SIRS Temperature: Pulse: Respiratory Rate: Laboratory Tests 09/19/21 12:36: White Blood Count 7.4 Blood Pressure / Mean: 09/19/21 12:36: Lactic Acid Level 2.03*H 09/19/21 14:42: Lactic Acid Level 2.16*H Laboratory Tests 09/19/21 12:36: Creatinine 0.77, INR Comment 1.1, Platelet Count 131, Total Bilirubin 1.5H Results/Orders Lab Results Laboratory Tests Test 09/19/21 12:36 09/19/21 14:10 09/19/21 14:42 09/19/21 15:31 Range/Units White Blood Count 7.4 4.3-11.0 10^3/uL Red Blood Count 4.31 3.80-5.11 10^6/uL Hemoglobin 11.7 11.5-16.0 g/dL Hematocrit 36 35-52 % Mean Corpuscular Volume 84 80-99 fL Mean Corpuscular Hemoglobin 27 25-34 pg Mean Corpuscular Hemoglobin Concent 33 32-36 g/dL Red Cell Distribution Width 15.5 H 10.0-14.5 % Platelet Count 131 130-400 10^3/uL Mean Platelet Volume 11.1 9.0-12.2 fL Immature Granulocyte % (Auto) 7 % Neutrophils (%) (Auto) 78 H 42-75 % Lymphocytes (%) (Auto) 9 L 12-44 % Monocytes (%) (Auto) 5 0-12 % Eosinophils (%) (Auto) 0 0-10 % Basophils (%) (Auto) 1 0-10 % Neutrophils # (Auto) 5.8 1.8-7.8 10^3/uL Lymphocytes # (Auto) 0.7 L 1.0-4.0 10^3/uL Monocytes # (Auto) 0.4 0.0-1.0 10^3/uL Eosinophils # (Auto) 0.0 0.0-0.3 10^3/uL Basophils # (Auto) 0.0 0.0-0.1 10^3/uL Immature Granulocyte # (Auto) 0.5 H 0.0-0.1 10^3/uL Prothrombin Time 14.4 12.2-14.7 SEC INR Comment 1.1 0.8-1.4 Activated Partial Thromboplast Time 26 24-35 SEC Sodium Level 138 135-145 MMOL/L Potassium Level 4.1 3.6-5.0 MMOL/L Chloride Level 103 98-107 MMOL/L Carbon Dioxide Level 20 L 21-32 MMOL/L Anion Gap 15 H 5-14 MMOL/L Blood Urea Nitrogen 15 7-18 MG/DL Creatinine 0.77 0.60-1.30 MG/DL Estimat Glomerular Filtration Rate 82 BUN/Creatinine Ratio 19 Glucose Level 172 H 70-105 MG/DL Lactic Acid Level 2.03 *H 2.16 *H 0.50-2.00 MMOL/L Calcium Level 9.1 8.5-10.1 MG/DL Corrected Calcium 9.4 8.5-10.1 MG/DL Magnesium Level 1.6 1.6-2.4 MG/DL Total Bilirubin 1.5 H 0.1-1.0 MG/DL Aspartate Amino Transf (AST/SGOT) 32 5-34 U/L Alanine Aminotransferase (ALT/SGPT) 33 0-55 U/L Alkaline Phosphatase 85 40-136 U/L Myoglobin 41.6 10.0-92.0 NG/ML Troponin I < 0.028 < 0.028 <0.028 NG/ML B-Type Natriuretic Peptide 48.6 <100.0 PG/ML Total Protein 6.3 L 6.4-8.2 GM/DL Albumin 3.6 3.2-4.5 GM/DL Smear Scan YES Urine Color YELLOW Urine Clarity CLEAR Urine pH 6.0 5-9 Urine Specific Bartlett 1.015 L 1.016-1.022 Urine Protein NEGATIVE NEGATIVE Urine Glucose (UA) NEGATIVE NEGATIVE Urine Ketones 2+ H NEGATIVE Urine Nitrite NEGATIVE NEGATIVE Urine Bilirubin NEGATIVE NEGATIVE Urine Urobilinogen 0.2 < = 1.0 MG/DL Urine Leukocyte Esterase TRACE H NEGATIVE Urine RBC (Auto) 1+ H NEGATIVE Urine RBC 5-10 H /HPF Urine WBC 2-5 /HPF Urine Squamous Epithelial Cells 0-2 /HPF Urine Crystals NONE /LPF Urine Bacteria FEW H /HPF Urine Casts NONE /LPF Urine Mucus NEGATIVE /LPF Urine Culture Indicated YES Micro Results Microbiology 09/19/21 Blood Culture - Preliminary, Resulted No growth 09/19/21 Urine Culture - Preliminary, Resulted NO GROWTH 09/19/21 Blood Culture - Preliminary, Resulted No growth My Orders Orders - ERNIE ARRIAGA PA Ekg Tracing (09/19/21 12:16) Ekg Tracing (09/19/21 12:18) Cbc With Automated Diff (09/19/21 12:20) Magnesium (09/19/21 12:20) Chest 1 View, Ap/Pa Only (09/19/21 12:20) Comprehensive Metabolic Panel (09/19/21 12:20) Myoglobin Serum (09/19/21 12:20) Protime With Inr (09/19/21 12:20) Partial Thromboplastin Time (09/19/21 12:20) Monitor-Rhythm Ecg Trace Only (09/19/21 12:20) Ed Iv/Invasive Line Start (09/19/21 12:20) Bnp Aissatou (09/19/21 12:20) Troponin I Aissatou (09/19/21 12:20) Aspirin Chewable Tablet (Baby Aspirin Ch (09/19/21 12:30) Urinalysis (09/19/21 12:20) Blood Culture (09/19/21 12:20) Lactic Acid Analyzer (09/19/21 12:20) Blood Culture (09/19/21 12:41) Ns Iv 1000 Ml (Sodium Chloride 0.9%) (09/19/21 13:21) Ns Iv 1000 Ml (Sodium Chloride 0.9%) (09/19/21 13:24) Abdomen/Kub 1view (09/19/21 13:56) Troponin I Dolores (09/19/21 15:36) Urine Culture (09/19/21 14:10) Ns Iv 1000 Ml (Sodium Chloride 0.9%) (09/19/21 17:15) Ns Iv 1000 Ml (Sodium Chloride 0.9%) (09/19/21 15:43) Medications Given in ED Vital Signs/I&O 09/19/21 09/19/21 12:12 17:13 Pulse 81 75 Resp 20 16 B/P (MAP) 163/88 (113) 163/81 Pulse Ox 100 98 Capillary Refill : ECG Comment Sinus rhythm, borderline left axis deviation, nonspecific T wave abnormality, 88 bpm, QRS duration 97 MS, QTc 421 MS. Departure Communication (PCP) Patient reports to the ED with family for generalized weakness and confusion. According to son at bedside patient has been more sluggish slow to respond since yesterday. On arrival she is alert and orient x3. She has no focal neural deficits. No visual change, headache, dizziness. NIH was 0. No current chest pain, cough or shortness of breath. Recently discharged this past Wednesday with C. difficile. Currently taking oral vancomycin. Patient states she had some chest pain on the left side today. No known cardiac history. Patient with cardiac risk factors. EKG without evidence of ST elevation or depression, or arrhythmia. Normal troponin. Normal BNP. Due to her current chest pain and complaint serial troponin at 3 hours was ordered and was unremarkable. Patient urinalysis tested positive for UTI. Symptoms concerning for dehydration secondary to the diarrhea from the C. difficile. She states she has had continu ous abdominal pain but no worsening pain and felt like it may be getting better. She states diarrhea is improving but still having loose stool. Abdominal x-ray was ordered to rule out any volvulus or obstruction which was unremarkable. Prominent air noted in the colon. CT abdomen pelvis was not ordered secondary to no worsening abdominal pain. She just had a CT of the pelvis that was positive for colitis which still may have some form of colitis and reassuring white blood count. No peritoneal signs. she was admitted with an elevated white blood count of 21,000. Oral vancomycin she is currently taking and has 2 days worth according to patient and family. The patient had a slight elevated increase in her lactic acid 2.03 to an increase at 2.16. This was discussed with Dr. Genao considered admission for the elevated lactic acid and her current complaints. Patient urinalysis cultured return back positive for Corynebacterium. Susceptible to Linezolid. He recommends starting patient on this antibiotic and add vancomycin for the duration of the linezolid. He recommended a second liter of fluid which she did receive and patient to be discharged. She did not want to get her third lactic acid drawn. She was eager to be discharged. She states she feels better after the fluids. Continue with oral antibiotics. Recommend hydration. recommend outpatient follow-up with her PCP 2 to 3 days for reevaluation of urinalysis and lab work. Impression Primary Impression: UTI (urinary tract infection) Additional Impression: Dehydration Disposition: HOME, SELF-CARE Condition: Stable Departure-Patient Inst. Decision time for Depature: 15:45 Referrals: OMKAR DUBOSE MD (PCP/Family) Primary Care Physician Patient Instructions: Urinary Tract Infections in Adults Scripts Linezolid (Linezolid) 600 Mg Tablet 600 MG PO BID for 7 Days, #14 TAB Prov: ERNIE ARRIAGA 09/19/21 Vancomycin HCl (Vancocin HCl) 125 Mg Capsule 125 MG PO Q6H for 5 Days, #20 CAP Prov: ERNIE ARRIAGA 09/19/21 Linezolid (Linezolid) 600 Mg Tablet 600 MG PO BID for 7 Days, #14 TAB Prov: ERNIE ARRIAGA 09/19/21 ERNIE ARRIAGA Sep 19, 2021 12:26
[2021-09-19] MEDS ORDERED: ASPIRIN 81 MG CHEW (CHILDREN'S ASA) PO ONE (12:30)
[2021-09-19 12:45] LABS: BASOPHILS % (AUTO) 1 % (0-10); EOSINOPHILS % (AUTO) 0 % (0-10); HEMATOCRIT 36 % (35-52); HEMOGLOBIN 11.7 g/dL (11.5-16.0); LYMPHOCYTES # (AUTO) 0.7 10^3/uL (1.0-4.0); LYMPHOCYTES % (AUTO) 9 % (12-44); MEAN CORPUSCULAR HEMOGLOBIN 27 pg (25-34); MEAN CORPUSCULAR HGB CONC 33 g/dL (32-36); MEAN CORPUSCULAR VOLUME 84 fL (80-99); MEAN PLATELET VOLUME 11.1 fL (9.0-12.2); MONOCYTES # (AUTO) 0.4 10^3/uL (0.0-1.0); MONOCYTES % (AUTO) 5 % (0-12); NEUTROPHILS # (AUTO) 5.8 10^3/uL (1.8-7.8); NEUTROPHILS % (AUTO) 78 % (42-75); PLATELET COUNT 131 10^3/uL (130-400); WHITE BLOOD COUNT 7.4 10^3/uL (4.3-11.0)
[2021-09-19 12:46] LABS: SMEAR SCAN COMMENT YES
[2021-09-19 12:57] LABS: ALBUMIN 3.6 GM/DL (3.2-4.5)
[2021-09-19 12:58] LABS: INR 1.1 (0.8-1.4); POTASSIUM 4.1 MMOL/L (3.6-5.0); PROTHROMBIN TIME PATIENT 14.4 SEC (12.2-14.7)
[2021-09-19 12:59] LABS: CALCIUM 9.1 MG/DL (8.5-10.1)
[2021-09-19 13:00] LABS: TOTAL PROTEIN 6.3 GM/DL (6.4-8.2)
[2021-09-19 13:02] LABS: BILIRUBIN,TOTAL 1.5 MG/DL (0.1-1.0)
--- NOTE | 2021-09-19 13:02 | Diagnostic Imaging Report ---
CLINICAL INDICATIONS: Patient with increased generalized weakness and confusion for 2 days. The patient has left-sided chest pain, started today, unsure what time. EXAM: Portable chest x-ray upright view. COMPARISON: Chest x-ray dated 09/12/2021. FINDINGS: Lungs/pleura: Stable appearance of the lung smith. There is no interval lung infiltrate. Increased lung markings in both lung bases may be related to chronic lung changes. There is no pneumothorax. There is no pleural effusion. Mediastinum: Unremarkable. Pulmonary vasculature: Unremarkable. Heart: Unremarkable. Bones/extrathoracic soft tissue: There are hypertrophic spurs involving the thoracic spine. IMPRESSION: There is no radiographic evidence of acute cardiopulmonary process. Dictated by: Dictated on workstation # [id number]
[2021-09-19 13:04] LABS: CREATININE SERUM 0.77 MG/DL (0.60-1.30)
[2021-09-19 13:06] LABS: MAGNESIUM 1.6 MG/DL (1.6-2.4)
[2021-09-19] MEDS ORDERED: NS IV 1000 ML 1,000 ML IV STA (13:21)
[2021-09-19] MEDS ORDERED: NS IV 1000 ML 1,000 ML ONE ×2 (13:24→15:43)
[2021-09-19 14:23] LABS: BILIRUBIN,URINE NEGATIVE (NEGATIVE); CLARITY,URINE CLEAR; COLOR,URINE YELLOW; GLUCOSE, URINE (UA) NEGATIVE (NEGATIVE); KETONES,URINE 2+ (NEGATIVE); LEUKOCYTE ESTERASE ,URINE TRACE (NEGATIVE); NITRITE,URINE NEGATIVE (NEGATIVE); PROTEIN,URINE NEGATIVE (NEGATIVE)
[2021-09-19 14:30] LABS: BACTERIA,URINE FEW /HPF; SQUAMOUS EPITHELIAL CELL,UR 0-2 /HPF
--- NOTE | 2021-09-19 15:15 | Diagnostic Imaging Report ---
INDICATION: Generalized abdominal pain. TECHNIQUE: Two supine views of the abdomen at 02:50 p.m. CORRELATION STUDY: None. FINDINGS: Right-sided transsacral stimulator lead remains in place with a generator to the left of the abdomen. Prominent gas-filled loops of bowel are noted, particularly involving the colon. A few gas-filled loops of small bowel are present but without findings to suggest high-degree obstructive appearance. Multiple overlying monitor leads are present which obscure detail. Likely anchor screws over the pubic rami. Additional likely surgical clips in the left upper quadrant and cholecystectomy clips in the right upper quadrant. IMPRESSION: 1. Prominent gas-filled loops of bowel, particularly colon, are present. However, no evidence to suggest underlying obstructive feature. Dictated by: Dictated on workstation # [id number]
[2021-09-19] MEDS ORDERED: LNZ600T PO ×2 (15:48→16:19)
[2021-09-19] MEDS ORDERED: VANC125C11 PO (15:48)
[2021-09-19 17:13] VITALS: BP 163/81
[2021-09-19] MEDS ORDERED: NS IV 1000 ML 1,000 ML IV SCH (17:15)
== END 2021-09-19 17:12 | disposition home or self-care (01) ==
LOC: EDUNIT# 12:06 → ER 12:07
DX: A04.72 Enterocolitis due to Clostridium difficile, not specified as recurrent (principal); N39.0 Urinary tract infection, site not specified; R41.0 Disorientation, unspecified; Z79.2 Long term (current) use of antibiotics
CPT/HCPCS: 36415; 51701; 71045; 74018; 80053; 81000; 83605; 83735; 83874; 83880; 84484; 85025; 85610; 85730; 87040; 87088; 93041

== ENCOUNTER → 2021-10-22 | Outpatient (CLI) | payer MEDICARE ==
[~2021-10-22] MED LIST changes: +LNZ600T PO; +VANC125C11 PO
--- NOTE | 2021-10-22 14:25 | Diagnostic Imaging Report ---
PROCEDURE: US carotid duplex bilateral. TECHNIQUE: Multiple Real-time grayscale images were obtained over the carotid arteries in various projections bilaterally. Additional spectral analysis and color Doppler duplex images were also obtained. INDICATION: Bilateral carotid bruits. Diabetes. Dizziness. Blurred vision and double vision. Cardiac arrhythmia. COMPARISON: None. FINDINGS: The right common carotid artery demonstrates no significant atherosclerosis or stenosis. There is mild atherosclerosis of the proximal right ICA without stenosis. The ECA is patent. The vertebral artery is antegrade. Carotid upstrokes are brisk. The left common carotid artery appears normal. Carotid upstrokes are brisk. There is mild atherosclerosis at the origin of the proximal ICA. There is no stenosis. The ECA is patent. The vertebral artery is antegrade. Parameters based on the consensus panel Kumar-Scale and Doppler ultrasound criteria published January 2003, Radiology, Volume 229. DOPPLER (peak systolic velocity M/S Right Left CCA .61 .66 ICA Proximal .36 .55 ICA Mid .46 .55 ICA Distal .39 .56 RATIO .76 .86 ECA .76 .76 VERT .46 .34 IMPRESSION: Mild atherosclerosis in the bilateral internal carotid arteries with no hemodynamically significant stenosis. Dictated by: Dictated on workstation # [id number]
== END ==
LOC: RAD 11:56
DX: E11.9 Type 2 diabetes mellitus without complications (principal); I65.23 Occlusion and stenosis of bilateral carotid arteries; H53.8 Other visual disturbances
CPT/HCPCS: 93880

== ENCOUNTER → 2021-10-26 | Outpatient (CLI) | payer MEDICARE ==
--- NOTE | 2021-10-26 12:02 | Diagnostic Imaging Report ---
INDICATION: Pain and swelling, suspicion for septic joint. FINDINGS: The lateral view shows no convincing evidence for a joint effusion. No evidence for hardware loosening. No bony destructive process. No opaque foreign body or pathological air. IMPRESSION: Total knee arthroplasty performed. No evidence for joint effusion, pathological foreign body, or acute osseous pathology. Dictated by: Dictated on workstation # [id number]
== END ==
LOC: RAD 11:06
PROVIDERS: ATTEND Nurse Practitioner Community Health
DX: M25.561 Pain in right knee (principal); M25.461 Effusion, right knee; Z96.651 Presence of right artificial knee joint
CPT/HCPCS: 73562

== ENCOUNTER → 2021-11-06 | Outpatient (CLI) | payer MEDICARE | LOC: ORTHO 10:05 | PROVIDERS: ATTEND Orthopaedic Surgery | DX: M25.561 Pain in right knee (principal); E11.9 Type 2 diabetes mellitus without complications; E78.5 Hyperlipidemia, unspecified; I25.10 Atherosclerotic heart disease of native coronary artery without angina pectoris; I10 Essential (primary) hypertension; E66.9 Obesity, unspecified; Z96.651 Presence of right artificial knee joint | CPT/HCPCS: 99203 ==

== ENCOUNTER 2022-12-17 12:27 | Emergency (ER) | payer MEDICARE ==
[~2022-12-17] VITALS: Ht 177 cm; Wt 92.0 kg
[~2022-12-17 12:27] MED LIST changes: -AMOX125S47 PO; +AMOX125S48 PO
[2022-12-17] MEDS: KETOROLAC INJ 15 MG/ML VIAL IVP ONE (13:10)
--- NOTE | 2022-12-17 13:10 | ED Back Pain ---
General Chief Complaint: Back Problems Stated Complaint: BACK PAIN | HX OF KIDNEY STONES Nursing Triage Note: ARRIVED VIA AMB TO ROOM 10 WITH COMPLAINTS OF RIGHT FLANK PAIN STARTING ON WEDNESDAY. Source of Information: Patient Exam Limitations: No Limitations History of Present Illness Date Seen by Provider: Dec 17, 2022 Time Seen by Provider: 12:30 Initial Comments 72-year-old female presents to the ER with complaint of right-sided flank and right side pain since 12/14/2022. Pain has been every day, worse today. She reports she has had a history of kidney stones in the past, thinks this pain feels similar. She reports chronic abdominal pain due to her lymphocytic colitis. She denies any change to her abdominal pain. She reports diarrhea, this is also related to her lymphocytic colitis. Denies fevers, nausea, vomiting, dysuria. She has had a gastric bypass, and cholecystectomy. Allergies and Home Medications Allergies Coded Allergies: codeine (Unverified Allergy, Unknown, RASH, 07/30/21) Patient Home Medication List Home Medication List Reviewed: Yes Atorvastatin Calcium (Atorvastatin Calcium) 10 Mg Tablet, 10 MG PO HS, (Reported) Entered as Reported by: PRAKASH TAMEZ on 07/30/21 1649 Biotin (Biotin) 1 Mg Tablet, 1,000 MCG PO HS, (Reported) Entered as Reported by: GUICHO ANAND on 09/15/21 0859 Cefuroxime Axetil (Cefuroxime) 500 Mg Tablet, 500 MG PO BID Prescribed by: Cayla Holman on 12/17/22 1352 Cholecalciferol (Vitamin D3) (Vitamin D3) 50 Mcg (2000 Unit) Capsule, 50 MCG PO BID, (Reported) Entered as Reported by: GUICHO ANAND on 09/15/21 0858 Cyanocobalamin (Cyanocobalamin Injection) 1,000 Mcg/Ml Inj, 1,000 MCG IM ONCE A MONTH, (Reported) Entered as Reported by: GUICHO ANAND on 09/15/21 0901 Linezolid (Linezolid) 600 Mg Tablet, 600 MG PO BID Prescribed by: GERRY VEE on 09/19/21 1548 Linezolid (Linezolid) 600 Mg Tablet, 600 MG PO BID Prescribed by: GERRY VEE on 09/19/21 1619 Loperamide HCl (Imodium A-D) 2 Mg Tablet, 2 MG PO BID PRN for DIARRHEA, (Reported) Entered as Reported by: GUICHO ANAND on 09/15/21 0903 Metformin HCl (Metformin HCl) 1,000 Mg Tablet, 1,000 MG PO BID, (Reported) Entered as Reported by: PRAKASH TAMEZ on 07/30/21 1649 Nortriptyline HCl (Nortriptyline HCl) 50 Mg Capsule, 50 MG PO HS, (Reported) Entered as Reported by: PRAKASH TAMEZ on 07/30/21 1649 Prednisone (Prednisone) 10 Mg Tab, 15 MG PO DAILY Prescribed by: BEKAH LYN on 09/15/21 1154 Propylene Glycol (Systane Complete) 0.6 % Drops, 1 DROP OP HS, (Reported) Entered as Reported by: GUICHO ANAND on 09/15/21 0859 Vancomycin HCl (Vancomycin HCl) 125 Mg Capsule, 125 MG PO Q6HR Prescribed by: BEKAH LYN on 09/15/21 1150 Vancomycin HCl (Vancocin HCl) 125 Mg Capsule, 125 MG PO Q6H Prescribed by: GERRY VEE on 09/19/21 1548 Vit C/E/Zn/Coppr/Lutein/Zeaxan (Preservision Areds 2 Softgel) 250MG-90MG Capsule, 1 EACH PO HS, (Reported) Entered as Reported by: GUICHO ANAND on 09/15/21 0857 Review of Systems Constitutional: see HPI Past Ovceked-Crzczb-Zjcokb Hx Patient Social History Tobacco Use?: No Substance use?: No Alcohol Use?: No Immunizations Up To Date First/Initial COVID19 Vaccinat: Apr COVID19 Vaccination Ross: May COVID19 Vaccination Date: YES Seasonal Allergies Seasonal Allergies: Yes Past Medical History Surgery/Hospitalization HX: PMH: DM, LYPHATIC COLITIS, HIGH CHOL, AFIB Surgeries: Yes (CARDIAC ABLATION/GASTRIC BYPASS/R TKR/BILAT CATARACTS/) Abdominal, Bladder Surgery, Cardiac, Eye Surgery, Gallbladder, Joint Replacement, Orthopedic Respiratory: Yes (ASTHMA WITH UPPER RESP INFECTIONS) Asthma Cardiac: Yes (HAS HAD CARDIAC ABLATION/DR NITHIN LANIER FROM [facility] FOR CARDIO ) Irregular Heartbeat Neurological: No Reproductive Disorders: No Genitourinary: Yes (HAS INTERSTIM PLACED/INCONTINENCE) Bladder Infection, Kidney Stones Gastrointestinal: Yes (LYMPHOCYTIC COLITIS) Liver Disease/Jaundice, Cirrhosis Musculoskeletal: Yes (CHRONIC JOINT PAIN) Arthritis Endocrine: Yes Diabetes, Non-Insulin dep HEENT: Yes Cataract Loss of Vision: Bilateral Cancer: Yes Skin Did You Recieve Any Treatments: Yes What Type of Treatment Did You: Surgical Intervention Psychosocial: No Integumentary: No Blood Disorders: No Family Medical History No Pertinent Family Hx Physical Exam Vital Signs Vital Signs - First Documented 12/17/22 12:35 Temp 36.6 Pulse 102 Resp 16 B/P (MAP) 150/87 (108) Pulse Ox 99 O2 Delivery Room Air Capillary Refill : Less Than 3 Seconds Height, Weight, BMI Height: '" Weight: lbs. oz. kg; 29.00 BMI Method: General Appearance: No Apparent Distress, WD/WN Neck: Normal Inspection, Supple Cardiovascular: Regular Rate, Rhythm, Systolic Murmur Respiratory: Lungs Clear, Normal Breath Sounds, No Accessory Muscle Use, No Respiratory Distress Gastrointestinal: Normal Bowel Sounds, Soft, Guarding (Right upper quadrant, left upper quadrant) Back: CVA Tenderness (L), CVA Tenderness (R), Vertebral Tenderness (Reports vertebral tenderness is chronic), Other (Muscles of right lower and lower rotoformer backtender to palpation.) Extremity: Normal Inspection, Normal Range of Motion Neurologic/Psychiatric: Alert, Normal Mood/Affect Skin: Normal Color, Warm/Dry Progress/Results/Core Measures Results/Orders Lab Results Laboratory Tests Test 12/17/22 12:40 12/17/22 12:49 Range/Units White Blood Count 5.0 4.3-11.0 10^3/uL Red Blood Count 4.19 3.80-5.11 10^6/uL Hemoglobin 12.2 11.5-16.0 g/dL Hematocrit 38 35-52 % Mean Corpuscular Volume 90 80-99 fL Mean Corpuscular Hemoglobin 29 25-34 pg Mean Corpuscular Hemoglobin Concent 33 32-36 g/dL Red Cell Distribution Width 13.6 10.0-14.5 % Platelet Count 127 L 130-400 10^3/uL Mean Platelet Volume 10.6 9.0-12.2 fL Immature Granulocyte % (Auto) 0 % Neutrophils (%) (Auto) 78 H 42-75 % Lymphocytes (%) (Auto) 12 12-44 % Monocytes (%) (Auto) 8 0-12 % Eosinophils (%) (Auto) 2 0-10 % Basophils (%) (Auto) 0 0-10 % Neutrophils # (Auto) 3.9 1.8-7.8 10^3/uL Lymphocytes # (Auto) 0.6 L 1.0-4.0 10^3/uL Monocytes # (Auto) 0.4 0.0-1.0 10^3/uL Eosinophils # (Auto) 0.1 0.0-0.3 10^3/uL Basophils # (Auto) 0.0 0.0-0.1 10^3/uL Immature Granulocyte # (Auto) 0.0 0.0-0.1 10^3/uL Percent Immature Platelet Fraction 3.4 0.0-7.6 % Sodium Level 138 135-145 MMOL/L Potassium Level 3.2 L 3.6-5.0 MMOL/L Chloride Level 104 98-107 MMOL/L Carbon Dioxide Level 21 21-32 MMOL/L Anion Gap 13 5-14 MMOL/L Blood Urea Nitrogen 13 7-18 MG/DL Creatinine 0.80 0.60-1.30 MG/DL Estimat Glomerular Filtration Rate 78 BUN/Creatinine Ratio 16 Glucose Level 155 H 70-105 MG/DL Calcium Level 9.5 8.5-10.1 MG/DL Corrected Calcium 9.3 8.5-10.1 MG/DL Total Bilirubin 1.4 H 0.1-1.0 MG/DL Aspartate Amino Transf (AST/SGOT) 28 5-34 U/L Alanine Aminotransferase (ALT/SGPT) 18 0-55 U/L Alkaline Phosphatase 98 40-136 U/L Total Protein 7.5 6.4-8.2 GM/DL Albumin 4.2 3.2-4.5 GM/DL Lipase 11 8-78 U/L Urine Color YELLOW Urine Clarity CLEAR Urine pH 6.0 5-9 Urine Specific [place] 1.015 L 1.016-1.022 Urine Protein TRACE H NEGATIVE Urine Glucose (UA) NEGATIVE NEGATIVE Urine Ketones NEGATIVE NEGATIVE Urine Nitrite POSITIVE H NEGATIVE Urine Bilirubin NEGATIVE NEGATIVE Urine Urobilinogen 1.0 < = 1.0 MG/DL Urine Leukocyte Esterase 2+ H NEGATIVE Urine RBC (Auto) 1+ H NEGATIVE Urine RBC 0-2 /HPF Urine WBC 50-100 H /HPF Urine Squamous Epithelial Cells RARE /HPF Urine Crystals NONE /LPF Urine Bacteria LARGE H /HPF Urine Casts NONE /LPF Urine Mucus NEGATIVE /LPF Urine Culture Indicated YES My Orders Orders - CAYLA CALLEJAS APRN Ua Culture If Indicated (12/17/22 12:30) Comprehensive Metabolic Panel (12/17/22 13:04) Lipase (12/17/22 13:04) Ed Iv/Invasive Line Start (12/17/22 13:04) Cbc And Automated Diff (12/17/22 13:04) Ketorolac Injection (Ketorolac Injection (12/17/22 13:15) Urine Culture (12/17/22 12:49) Potassium Chloride (Tablet) (Potassium C (12/17/22 13:30) Ceftriaxone Iv/Im (Ceftriaxone Iv/Im) (12/17/22 13:45) Medications Given in ED Current Medications Medications Dose Ordered Sig/Dalia Route Start Time Stop Time Status Last Admin Dose Admin Ceftriaxone Sodium 1000 mg/ Sodium Chloride 50 ml @ 100 mls/hr ONCE ONCE IV 12/17/22 13:45 12/17/22 14:14 12/17/22 13:39 100 MLS/HR Ketorolac Tromethamine 15 mg ONCE ONCE IVP 12/17/22 13:15 12/17/22 13:16 DC 12/17/22 13:10 15 MG Potassium Chloride 40 meq ONCE ONCE PO 12/17/22 13:30 12/17/22 13:31 DC 12/17/22 13:38 40 MEQ Vital Signs/I&O 12/17/22 12:35 Temp 36.6 Pulse 102 Resp 16 B/P (MAP) 150/87 (108) Pulse Ox 99 O2 Delivery Room Air Blood Pressure Mean: 108 Progress Progress Note : Progress Note Patient seen and evaluated, resting comfortably in bed, no acute distress. Based on exam and symptoms, differential diagnosis includes was not limited to kidney stones UTI, musculoskeletal pain. Work-up initiated included CBC, CMP, lipase, UA. Toradol ordered for pain. 1334 Labs reviewed. CBC grossly normal. Mildly elevated neutrophil percentage 78. CMP shows decreased potassium 3.2. Glucose 155. Total bilirubin slightly elevated 1.4. Lipase normal. Urinalysis shows trace protein, positive nitrite, 2+ leukocytes, 1+ RBCs, 50-100 WBCs, large bacteria. Symptoms are likely related to urinary tract infection. Will treat with Rocephin. Oral potassium ordered for low potassium level. Results discussed with patient. Shared decision making with patient regarding need for CT scan. We discussed risks of the CT scan including cost and risk of radiation as well as the benefits including being able to rule out kidney stone or evaluate for other intra- abdominal pathology. We decided that we would treat the UTI first, and if symptoms do not improve patient will return or follow-up with primary care pro vider to be evaluated for a CT scan at that time. Will discharge after Rocephin. For discharge. Discharge instructions and return precautions provided. Departure Impression Primary Impression: UTI (urinary tract infection) Disposition: HOME, SELF-CARE Condition: Stable Departure-Patient Inst. Decision time for Depature: 13:49 Referrals: OMKAR DUBOSE MD (PCP/Family) Primary Care Physician Patient Instructions: Urinary Tract Infection, Adult ED Add. Discharge Instructions: Complete full course of antibiotic as prescribed. Make sure you are drinking plenty of water. Return or follow-up with primary care provider if your symptoms have not improved after 3-4 days of the antibiotic. You may need a CT scan at that time to evaluate for kidney stones. Return if your symptoms have not improved, they get worse, you develop a fever, or any other new, concerning, or worsening symptoms. All discharge instructions reviewed with patient and/or family. Voiced understanding. Scripts Cefuroxime Axetil (Cefuroxime) 500 Mg Tablet 500 MG PO BID for 7 Days, #14 TAB Prov: CAYLA CALLEJAS APRN 12/17/22 Copy Copies To 1: OMKAR DUBOSE MD, BRITTANY R APRN Dec 17, 2022 13:10
[2022-12-17 13:12] LABS: BASOPHILS % (AUTO) 0 % (0-10); HEMOGLOBIN 12.2 g/dL (11.5-16.0); MONOCYTES # (AUTO) 0.4 10^3/uL (0.0-1.0); MONOCYTES % (AUTO) 8 % (0-12)
[2022-12-17 13:14] LABS: EOSINOPHILS # (AUTO) 0.1 10^3/uL (0.0-0.3); EOSINOPHILS % (AUTO) 2 % (0-10); HEMATOCRIT 38 % (35-52); LYMPHOCYTES # (AUTO) 0.6 10^3/uL (1.0-4.0); LYMPHOCYTES % (AUTO) 12 % (12-44); MEAN CORPUSCULAR HEMOGLOBIN 29 pg (25-34); MEAN CORPUSCULAR HGB CONC 33 g/dL (32-36); MEAN CORPUSCULAR VOLUME 90 fL (80-99); MEAN PLATELET VOLUME 10.6 fL (9.0-12.2); NEUTROPHILS # (AUTO) 3.9 10^3/uL (1.8-7.8); NEUTROPHILS % (AUTO) 78 % (42-75); PLATELET COUNT 127 10^3/uL (130-400)
[2022-12-17 13:15] LABS: ALBUMIN 4.2 GM/DL (3.2-4.5); POTASSIUM 3.2 MMOL/L (3.6-5.0)
[2022-12-17 13:16] LABS: CALCIUM 9.5 MG/DL (8.5-10.1)
[2022-12-17 13:17] LABS: TOTAL PROTEIN 7.5 GM/DL (6.4-8.2)
[2022-12-17 13:19] LABS: BILIRUBIN,TOTAL 1.4 MG/DL (0.1-1.0)
[2022-12-17 13:19] LABS: BILIRUBIN,URINE NEGATIVE (NEGATIVE); CLARITY,URINE CLEAR; COLOR,URINE YELLOW; GLUCOSE, URINE (UA) NEGATIVE (NEGATIVE); KETONES,URINE NEGATIVE (NEGATIVE); LEUKOCYTE ESTERASE ,URINE 2+ (NEGATIVE); NITRITE,URINE POSITIVE (NEGATIVE); PROTEIN,URINE TRACE (NEGATIVE); RBC,URINE 0-2 /HPF; WBC,URINE 50-100 /HPF
[2022-12-17 13:20] LABS: BACTERIA,URINE LARGE /HPF; SQUAMOUS EPITHELIAL CELL,UR RARE /HPF
[2022-12-17 13:21] LABS: CREATININE SERUM 0.8 MG/DL (0.60-1.30)
[2022-12-17] MEDS: POTASSIUM CHLORIDE 20 MEQ TABLET PO ONE (13:38)
[2022-12-17] MEDS: cefTRIAXone IV/IM 1,000 MG in NS (IVPB) 50 ML 50 ML IV ONE (13:39)
[2022-12-17] MEDS ORDERED: CEFU500T63 PO (13:52)
[2022-12-17 14:17] VITALS: BP 153/91
== END 2022-12-17 14:18 | disposition home or self-care (01) ==
LOC: EDUNIT# 12:27 → ER 12:28
DX: N39.0 Urinary tract infection, site not specified (principal); Z90.49 Acquired absence of other specified parts of digestive tract; Z87.442 Personal history of urinary calculi; Z98.84 Bariatric surgery status
CPT/HCPCS: 36415; 80053; 81000; 83690; 85025; 87077; 87088; 87186

== ENCOUNTER → 2022-12-22 | Outpatient (CLI) | payer MEDICARE ==
--- NOTE | 2022-12-22 11:49 | Diagnostic Imaging Report ---
PROCEDURE: CT urinary tract, rule out kidney stone. TECHNIQUE: Multiple contiguous axial images were obtained through the abdomen and pelvis without the use of intravenous contrast. Auto Exposure Controls were utilized during the CT exam to meet ALARA standards for radiation dose reduction. INDICATION: Right flank pain with urinary tract infection. COMPARISON: 09/12/2021. FINDINGS: There is mild atelectasis and scarring in the lung bases. The heart is normal in size. There is no pericardial effusion. The liver demonstrates no focal lesions on this noncontrast exam. The liver has a nodular contour. Cholecystectomy clips are noted. The spleen is mildly large measuring 13 cm in length. The pancreas is mildly atrophic. The adrenal glands appear normal. The kidneys have no hydronephrosis, but there do appear to be punctate nonobstructing calculi in the right kidney. There is a small cyst in the right kidney measuring 1.3 cm. There are postsurgical changes from prior gastric bypass. No bowel obstruction or large collection of free air is seen. The appendix appears normal. No free fluid or free air is seen. The aorta is normal in caliber. There is calcific atherosclerosis. There are multiple enlarged lymph nodes in the shy hepatis which are chronic and appear similar to prior exams, with one measuring 1.8 cm in the short axis. No acute osseous abnormality is seen. There is mild chronic compression deformity of L1. A right sacral neurostimulator is noted. IMPRESSION: 1. Punctate nonobstructing calculi in the right kidney. No obstructing calculi or hydronephrosis. 2. Cirrhotic morphology of the liver with splenomegaly. Prominent shy hepatis lymph nodes appear stable since 2020. Dictated by: Dictated on workstation # [id number]
== END ==
LOC: RAD 11:15
PROVIDERS: ATTEND Internal Medicine
DX: N20.0 Calculus of kidney (principal); N39.0 Urinary tract infection, site not specified; K74.60 Unspecified cirrhosis of liver; R16.1 Splenomegaly, not elsewhere classified
CPT/HCPCS: 74176